=== PATIENT | female | born 1965 | race African-American/Black ===

== ENCOUNTER 2025-02-21 01:48 | Inpatient (IN) | payer OTHER ==
[2025-02-21 03:13] LABS: ABSOLUTE IMMATURE GRANULOCYTES 0.01 x10^3/uL (0.0-0.031); BASOPHILS # 0.03 x10^3/uL (0.01-0.08); EOSINOPHIL % 1.4 % (0.7-5.8); EOSINOPHILS # 0.09 x10^3/uL (0.04-0.36); HEMATOCRIT 34.9 % (34.1-44.9); HEMOGLOBIN 10.8 g/dL (11.2-15.7); MCHC 30.9 g/dl (32.2-35.5); MEAN CELL VOLUME 94.1 fl (79.4-94.8); MEAN PLT VOLUME 11.9 fl (9.4-12.3); MONOCYTE # 0.59 x10^3/uL (0.24-0.86); MONOCYTE % 9.3 % (4.7-12.5); PLATELET COUNT 228 x10^3/uL (182-369); RDW 16.1 % (12.3-16.6)
[2025-02-21 03:14] LABS: VENOUS BASE EXCESS -3.5 mmol/L (-2-2); VENOUS O2 SATURATION 67.4 % (70-80); VENOUS PH 7.282 (7.310-7.410)
[2025-02-21 03:21] LABS: INR 1.08 (0.83-1.09); PROTHROMBIN TIME (PATIENT) 11.9 SEC (9.7-13.0)
[2025-02-21 03:23] LABS: ACTIVATED PTT 33.1 SECONDS (25.2-36.5)
[2025-02-21 03:31] LABS: POTASSIUM 4.2 mmol/L (3.5-5.1)
[2025-02-21 03:34] LABS: ALBUMIN 3.3 g/dl (3.4-5.0); BLOOD UREA NITROGEN 48.7 mg/dL (7-18); CALCIUM 8.9 mg/dL (8.5-10.1); MAGNESIUM 2.8 mg/dL (1.8-2.4)
[2025-02-21 03:37] LABS: CREATININE 4.1 mg/dL (0.55-1.3)
[2025-02-21 03:38] LABS: BILIRUBIN,TOTAL 0.5 mg/dL (0.2-1)
[2025-02-21 03:39] LABS: TOT PROT 8.2 g/dl (6.4-8.2)
[2025-02-21] MEDS ORDERED: SCOPOLAMINE HYDROBROMIDE 1 PATCH PATCH.TD72 ONE (03:39)
[2025-02-21] MEDS: SCOPOLAMINE HYDROBROMIDE 1 PATCH PATCH.TD72 TD SCH (03:43)
[2025-02-21] MEDS ORDERED: levETIRAcetam 500 MG/5 ML INJECTION VIAL IVPB ONE (04:36)
[2025-02-21] MEDS: levETIRAcetam 500 MG/5 ML INJECTION VIAL IVPB ONE (04:43)
[2025-02-21] MEDS ORDERED: LORazepam 2 MG/ML SDV VIAL ONE (06:05)
[2025-02-21] MEDS ORDERED: ATORVASTATIN CA 20 MG TABLET (FP) ONE (09:17)
[2025-02-21] MEDS: ATORVASTATIN CA 40 MG TABLET (FP) PO ONE (09:29)
[2025-02-21] MEDS ORDERED: MIDODRINE HCL 5 MG TABLET GT SCH (10:00)
[2025-02-21] MEDS ORDERED: APIXABAN 5 MG TABLET ONE (10:25)
[2025-02-21] MEDS ORDERED: levETIRAcetam 500 MG/5 ML ORAL SOLUTION (UNIT-DOSE CUPS) ONE (10:26)
[2025-02-21] MEDS ORDERED: Lacosamide 50 MG/5 ML ORAL SOLUTION UNIT CUPS ONE (10:26)
[2025-02-21] MEDS ORDERED: MIDODRINE HCL 5 MG TABLET ONE (10:26)
[2025-02-21] MEDS: MIDODRINE HCL 5 MG TABLET GT SCH (10:41)
[2025-02-21] MEDS: Lacosamide 50 MG/5 ML ORAL SOLUTION UNIT CUPS GT SCH ×2 (10:41→10:42)
[2025-02-21] MEDS: levETIRAcetam 500 MG/5 ML ORAL SOLUTION (UNIT-DOSE CUPS) GT SCH (10:41)
[2025-02-21] MEDS: APIXABAN 5 MG TABLET GT SCH (10:41)
[2025-02-21] MEDS: Lacosamide 50 MG/5 ML ORAL SOLUTION UNIT CUPS PO SCH (10:41)
[2025-02-21] MEDS: INSULIN ASPART SLIDING SCALE (NOVOLOG) 1 VIAL SQ SCH (12:40)
[2025-02-21] MEDS: ASPIRIN 81 MG CHEWABLE TABLETS GT SCH (14:56)
[2025-02-21] MEDS: VALPROATE SODIUM 250 MG/5 ML UNIT DOSE CUP GT SCH ×2 (14:56→22:09)
[2025-02-21] MEDS ORDERED: SODIUM CHLORIDE 250 ML IV PRN (21:10)
[2025-02-21] MEDS: METOCLOPRAMIDE HCL 10 MG/10 ML UNIT DOSE CUP GT SCH (22:43)
[2025-02-22] MEDS: VALPROATE SODIUM 250 MG/5 ML UNIT DOSE CUP GT SCH ×2 (06:12→13:06)
[2025-02-22 06:45] LABS: HEMOGLOBIN 10.6 g/dL (11.2-15.7); MCHC 30.3 g/dl (32.2-35.5); MEAN CELL VOLUME 95.1 fl (79.4-94.8); PLATELET COUNT 209 x10^3/uL (182-369); RDW 15.7 % (12.3-16.6)
[2025-02-22 06:51] LABS: POTASSIUM 4.8 mmol/L (3.5-5.1)
[2025-02-22 07:06] LABS: CALCIUM 8.7 mg/dL (8.5-10.1)
[2025-02-22 07:07] LABS: ALBUMIN 3.2 g/dl (3.4-5.0); BLOOD UREA NITROGEN 56.3 mg/dL (7-18); MAGNESIUM 2.8 mg/dL (1.8-2.4)
[2025-02-22 07:10] LABS: CREATININE 4.9 mg/dL (0.55-1.3); PHOSPHOROUS 4.2 mg/dL (2.5-4.9)
[2025-02-22 07:11] LABS: BILIRUBIN,TOTAL 0.5 mg/dL (0.2-1); TOT PROT 7.9 g/dl (6.4-8.2)
[2025-02-22] MEDS: cloBAZam 10 MG TABLET GT SCH (09:41)
[2025-02-22] MEDS: VALPROATE SODIUM 250 MG/5 ML UNIT DOSE CUP GT ONE (09:41)
[2025-02-22] MEDS ORDERED: LORazepam 2 MG/ML SDV VIAL IVPUSH PRN (13:38)
[2025-02-22 14:59] VITALS: BMI 36.0
[2025-02-22 15:03] LABS: HCV DIAGNOSTIC IN-HOUSE W/RFLX NON-REACTIVE (NONREACTIVE)
[2025-02-23 06:56] LABS: POTASSIUM 4.3 mmol/L (3.5-5.1)
[2025-02-23 06:59] LABS: CALCIUM 8.9 mg/dL (8.5-10.1); HEMATOCRIT 31.5 % (34.1-44.9); HEMOGLOBIN 9.5 g/dL (11.2-15.7); MCHC 30.2 g/dl (32.2-35.5); MEAN CELL VOLUME 95.2 fl (79.4-94.8); PLATELET COUNT 198 x10^3/uL (182-369); RDW 15.7 % (12.3-16.6)
[2025-02-23 07:00] LABS: BLOOD UREA NITROGEN 63.8 mg/dL (7-18); MAGNESIUM 2.6 mg/dL (1.8-2.4)
[2025-02-23 07:03] LABS: CREATININE 5.5 mg/dL (0.55-1.3)
[2025-02-23] MEDS ORDERED: SODIUM CHLORIDE 250 ML IV PRN (14:36)
[2025-02-23] MEDS ORDERED: EPOETIN ALFA-EPBX 4,000 UNIT/ML VIAL SQ ONE (14:36)
[2025-02-23] MEDS: EPOETIN ALFA-EPBX 4,000 UNIT/ML VIAL SQ ONE (19:18)
[2025-02-24] MEDS: ACETAMINOPHEN 650 MG/20.3 ML ORAL SOLUTION (CUPS) GT PRN (04:58)
[2025-02-24 07:07] LABS: HEMATOCRIT 31.8 % (34.1-44.9); HEMOGLOBIN 9.8 g/dL (11.2-15.7); MCHC 30.8 g/dl (32.2-35.5); MEAN CELL VOLUME 95.5 fl (79.4-94.8); MEAN PLT VOLUME 12.4 fl (9.4-12.3); PLATELET COUNT 136 x10^3/uL (182-369); RDW 15.6 % (12.3-16.6)
[2025-02-24 07:24] LABS: POTASSIUM 4.1 mmol/L (3.5-5.1)
[2025-02-24 07:36] LABS: CALCIUM 8.8 mg/dL (8.5-10.1); MAGNESIUM 2.5 mg/dL (1.8-2.4)
[2025-02-24 07:37] LABS: ALBUMIN 3.1 g/dl (3.4-5.0); BLOOD UREA NITROGEN 45.5 mg/dL (7-18)
[2025-02-24 07:40] LABS: CREATININE 4.2 mg/dL (0.55-1.3); PHOSPHOROUS 3.5 mg/dL (2.5-4.9)
[2025-02-24 07:41] LABS: BILIRUBIN,TOTAL 0.3 mg/dL (0.2-1); TOT PROT 7.6 g/dl (6.4-8.2)
[2025-02-24] MEDS: hydrALAZINE HCL 20 MG/ML VIAL IVPUSH PRN (09:40)
[2025-02-24] MEDS ORDERED: SODIUM CHLORIDE 250 ML IV PRN (15:14)
[2025-02-25 06:55] LABS: HEMATOCRIT 33.5 % (34.1-44.9); MCHC 29.9 g/dl (32.2-35.5); MEAN CELL VOLUME 95.2 fl (79.4-94.8); MEAN PLT VOLUME 12.5 fl (9.4-12.3); PLATELET COUNT 165 x10^3/uL (182-369)
[2025-02-25 07:10] LABS: POTASSIUM 4.3 mmol/L (3.5-5.1)
[2025-02-25 07:13] LABS: CALCIUM 9.7 mg/dL (8.5-10.1)
[2025-02-25 07:14] LABS: BLOOD UREA NITROGEN 57.3 mg/dL (7-18)
[2025-02-25 07:18] LABS: BILIRUBIN,TOTAL 0.4 mg/dL (0.2-1); TOT PROT 7.3 g/dl (6.4-8.2)
[2025-02-25 13:01] VITALS: RESP 18; TEMP 98.2
[2025-02-25 16:31] VITALS: BP 140/75; PULSE 82
[2025-02-25] MEDS ORDERED: INSULIN ASPART SLIDING SCALE (NOVOLOG) 1 VIAL SQ ONE (17:49)
== END 2025-02-25 18:30 | DRG 100 ==
LOC: JER 01:48 → JERBED 04:51 → OBSVTOIN 08:58 → J2W 11:20
PROVIDERS: ADMIT Internal Medicine; ATTEND Student in an Organized Health Care Education/Training Program
PROC: 5A1955Z Respiratory Ventilation, Greater than 96 Consecutive Hours (ICD-10-PCS; principal; 2025-02-21)
PROC: 5A1D70Z Performance of Urinary Filtration, Intermittent, Less than 6 Hours Per Day (ICD-10-PCS; 2025-02-25)
DX: G40.901 Epilepsy, unspecified, not intractable, with status epilepticus (principal); N18.6 End stage renal disease; R53.2 Functional quadriplegia; G93.1 Anoxic brain damage, not elsewhere classified; I12.0 Hypertensive chronic kidney disease with stage 5 chronic kidney disease or end stage renal disease; E11.22 Type 2 diabetes mellitus with diabetic chronic kidney disease; Z99.2 Dependence on renal dialysis; Z93.0 Tracheostomy status
CPT/HCPCS: 0241U-QW; 36415; 70450-TC; 70551-TC; 71045-TC-FY; 80048; 80053; 80164; 80177; 82803; 82962; 83605; 83690; 83735; 83880; 84100; 84484; 85025; 85027; 85610; 85730; 86704; 86707; 86803; 87040; 87340; 87481; 93005; 93010; 95816; 99285-25; G0378; Q5106

== ENCOUNTER 2025-02-26 13:54 | Emergency (ER) | payer OTHER ==
[2025-02-26 14:59] VITALS: TEMP 98.5; BMI 40.2
[2025-02-26 20:45] VITALS: BP 133/88; PULSE 73; RESP 20
== END 2025-02-26 23:43 | disposition home or self-care (01) ==
LOC: JER 13:54
DX: K94.23 Gastrostomy malfunction (principal)
CPT/HCPCS: 49450; 49452; 74018-TC-FY; 82962; 99284-25

== ENCOUNTER 2025-05-18 01:53 | Inpatient (IN) | payer OTHER ==
[2025-05-18 03:30] LABS: ABSOLUTE IMMATURE GRANULOCYTES 0.01 x10^3/uL (0.0-0.031); BASOPHILS # 0.01 x10^3/uL (0.01-0.08); EOSINOPHIL % 1.9 % (0.7-5.8); EOSINOPHILS # 0.09 x10^3/uL (0.04-0.36); MCHC 31.2 g/dl (32.2-35.5); MEAN CELL VOLUME 94.0 fl (79.4-94.8); MEAN PLT VOLUME 12.0 fl (9.4-12.3); MONOCYTE # 0.54 x10^3/uL (0.24-0.86); MONOCYTE % 11.1 % (4.7-12.5); RDW 19.0 % (12.3-16.6)
[2025-05-18 03:54] LABS: CO2 30.0 mmol/L (21-32); GLUCOSE,RANDOM 281.0 mg/dL (74-106)
[2025-05-18 03:56] LABS: CREATININE 1.8 mg/dL (0.55-1.3); SGOT/AST 14.0 U/L (15-37); SGPT/ALT 13.0 U/L (13-61)
[2025-05-18 03:57] LABS: TOT PROT 9.1 g/dl (6.4-8.2)
[2025-05-18 03:59] LABS: ALK PHOS 459.0 U/L (45-117)
[2025-05-18] MEDS: KCL 10 MEQ IVPB 10 MEQ/100 ML INFUS.BAG IVPB SCH (04:22)
[2025-05-18] MEDS: PIPERACILLIN/TAZOB 4.5 GM 4.5 GM in DEXTROSE 5%-WATER 100 ML IVPB ONE (04:22)
[2025-05-18] MEDS ORDERED: PIPERACILLIN/TAZOB 4.5 GM 4.5 GM/100 ML BAG IVPB ONE (04:25)
[2025-05-18 05:09] LABS: HIV INTERPRETATION NEGATIVE (NEGATIVE)
[2025-05-18 05:10] LABS: HCV DIAGNOSTIC IN-HOUSE W/RFLX NON-REACTIVE (NONREACTIVE)
[2025-05-18] MEDS ORDERED: VANCOMYCIN 1 GM PREMIX (F) 1 GM/200 ML BAG ONE (05:12)
[2025-05-18] MEDS: VANCOMYCIN 1,000 MG in DEXTROSE 5%-WATER - 250 ML IVPB ONE (05:16)
[2025-05-18] MEDS ORDERED: LORazepam 2 MG/ML SDV VIAL IVPUSH PRN (05:20)
[2025-05-18] MEDS ORDERED: KCL 10 MEQ IVPB 10 MEQ/100 ML INFUS.BAG IVPB ONE (05:26)
[2025-05-18] MEDS ORDERED: SILVER SULFADIAZINE 1% TOP CREAM 400 GM JAR TP PRN (07:25)
[2025-05-18] MEDS ORDERED: ALBUTEROL SO4 0.083% IH SOL 2.5 MG/3 ML VIAL.NEB. NEB PRN (07:25)
[2025-05-18 07:33] LABS: BASOPHILS # 0.01 x10^3/uL (0.01-0.08)
[2025-05-18 07:35] LABS: ABSOLUTE IMMATURE GRANULOCYTES 0.01 x10^3/uL (0.0-0.031); EOSINOPHIL % 1.8 % (0.7-5.8); EOSINOPHILS # 0.09 x10^3/uL (0.04-0.36); IMMATURE PLATELET FRACTION # 10.60 x10^3/uL; MCHC 30.3 g/dl (32.2-35.5); MEAN CELL VOLUME 94.4 fl (79.4-94.8); MEAN PLT VOLUME 11.2 fl (9.4-12.3); MONOCYTE # 0.71 x10^3/uL (0.24-0.86); MONOCYTE % 13.8 % (4.7-12.5); RDW 18.8 % (12.3-16.6)
[2025-05-18 07:47] LABS: CO2 28.0 mmol/L (21-32); CREATININE 1.7 mg/dL (0.55-1.3); GLUCOSE,RANDOM 237.0 mg/dL (74-106)
[2025-05-18 07:48] LABS: ALK PHOS 443.0 U/L (45-117); SGOT/AST 13.0 U/L (15-37); SGPT/ALT 10.0 U/L (13-61); TOT PROT 9.1 g/dl (6.4-8.2)
[2025-05-18] MEDS: APIXABAN 5 MG TABLET GT SCH (10:26)
[2025-05-18] MEDS: CARVEDILOL 12.5 MG TABLET (FP) PEG SCH (10:27)
[2025-05-18] MEDS: SCOPOLAMINE HYDROBROMIDE 1 PATCH PATCH.TD72 TD SCH (10:27)
[2025-05-18] MEDS: POLYETHYLENE GLYCOL (HEALTHYLAX) 3350 17 GM PACKET GT SCH (10:28)
[2025-05-18] MEDS ORDERED: POLYETHYLENE GLYCOL (HEALTHYLAX) 3350 17 GM PACKET ONE (10:31)
[2025-05-18] MEDS ORDERED: SCOPOLAMINE HYDROBROMIDE 1 PATCH PATCH.TD72 ONE (10:31)
[2025-05-18] MEDS ORDERED: CARVEDILOL 6.25 MG TABLET (FP) ONE (10:31)
[2025-05-18] MEDS: VALPROATE SODIUM 250 MG/5 ML UNIT DOSE CUP PEG SCH ×2 (14:13→22:03)
[2025-05-18] MEDS: FAMOTIDINE 20 MG/2.5 ML ORAL LIQUID PO SCH (14:14)
[2025-05-18] MEDS: VITAMIN B COMPLEX W/C COMBO TABLET (FP) PO SCH (14:14)
[2025-05-18] MEDS: METOCLOPRAMIDE HCL 10 MG/10 ML UNIT DOSE CUP GT SCH (15:00)
[2025-05-18] MEDS ORDERED: INSULIN (NOVOLOG) ASPART 100 UNITS/ML 10ML VIAL SQ SCH (16:30)
[2025-05-18] MEDS: SILVER SULFADIAZINE 1% TOP CREAM 400 GM JAR TP SCH (18:17)
[2025-05-18] MEDS ORDERED: CLOBAZAM 2.5 MG/ML PEG SCH (22:00)
[2025-05-18] MEDS: SENNOSIDES 8.8 MG/5 ML SYRUP GT SCH (22:03)
[2025-05-18] MEDS: INSULIN ASPART SLIDING SCALE (NOVOLOG) 1 VIAL SQ SCH (22:03)
[2025-05-18] MEDS: INSULIN GLARGINE (LANTUS) 100 UNITS/ML UNITS SQ SCH (22:03)
[2025-05-19 06:21] LABS: ABSOLUTE IMMATURE GRANULOCYTES 0.01 x10^3/uL (0.0-0.031); EOSINOPHIL % 3.0 % (0.7-5.8); EOSINOPHILS # 0.12 x10^3/uL (0.04-0.36)
[2025-05-19 06:24] LABS: BASOPHILS # 0.02 x10^3/uL (0.01-0.08); IMMATURE PLATELET FRACTION # 10.10 x10^3/uL; MCHC 30.8 g/dl (32.2-35.5); MEAN CELL VOLUME 92.9 fl (79.4-94.8); MEAN PLT VOLUME 11.8 fl (9.4-12.3); MONOCYTE # 0.69 x10^3/uL (0.24-0.86); MONOCYTE % 17.2 % (4.7-12.5); RDW 17.9 % (12.3-16.6)
[2025-05-19 06:44] LABS: CO2 28.0 mmol/L (21-32); GLUCOSE,RANDOM 141.0 mg/dL (74-106)
[2025-05-19 06:47] LABS: CREATININE 2.2 mg/dL (0.55-1.3)
[2025-05-19 11:11] VITALS: BMI 42.5
[2025-05-19] MEDS ORDERED: INSULIN ASPART SLIDING SCALE (NOVOLOG) 1 VIAL SQ ONE ×2 (11:59→16:48)
[2025-05-20] MEDS: ACETAMINOPHEN 650 MG/20.3 ML ORAL SOLUTION (CUPS) GT PRN (09:55)
[2025-05-20 16:34] VITALS: PULSE 62
[2025-05-20 17:08] VITALS: BP 160/83; RESP 11; TEMP 98
[2025-05-23] MEDS ORDERED: Darbepoetin Alfa in Polysorbat 40 MCG/0.4 DISP.SYRIN SQ SCH (10:00)
== END 2025-05-20 20:18 | DRG 100 ==
LOC: JER 01:53 → JERBED 04:35 → J2W 11:21
PROVIDERS: ADMIT Internal Medicine; ATTEND Internal Medicine
PROC: 5A1945Z Respiratory Ventilation, 24-96 Consecutive Hours (ICD-10-PCS; principal; 2025-05-18)
PROC: 30233N1 Transfusion of Nonautologous Red Blood Cells into Peripheral Vein, Percutaneous Approach (ICD-10-PCS; 2025-05-18)
DX: G40.909 Epilepsy, unspecified, not intractable, without status epilepticus (principal); N18.6 End stage renal disease; G93.1 Anoxic brain damage, not elsewhere classified; Z99.11 Dependence on respirator [ventilator] status; E87.1 Hypo-osmolality and hyponatremia; Z68.41 Body mass index [BMI] 40.0-44.9, adult; E87.6 Hypokalemia; J44.9 Chronic obstructive pulmonary disease, unspecified; Z93.0 Tracheostomy status; Z93.1 Gastrostomy status; D64.9 Anemia, unspecified; D69.6 Thrombocytopenia, unspecified; L89.152 Pressure ulcer of sacral region, stage 2; K21.9 Gastro-esophageal reflux disease without esophagitis; E66.01 Morbid (severe) obesity due to excess calories
CPT/HCPCS: 36415; 36430; 70450-TC; 71045-TC-FY; 80048; 80053; 80164; 82140; 82962; 83735; 84100; 85025; 86803; 86850; 86900; 86901; 86922; 87389; 87481; 93005; 93010; 99285-25; P9058

== ENCOUNTER 2025-05-24 13:11 | Inpatient (IN) | payer OTHER ==
[2025-05-24 13:48] VITALS: BMI 58.6
[2025-05-24 15:51] LABS: ABSOLUTE IMMATURE GRANULOCYTES 0.01 x10^3/uL (0.0-0.031); BASOPHILS # 0.01 x10^3/uL (0.01-0.08)
[2025-05-24 15:52] LABS: EOSINOPHIL % 3.7 % (0.7-5.8); EOSINOPHILS # 0.16 x10^3/uL (0.04-0.36); IMMATURE PLATELET FRACTION # 8.10 x10^3/uL; MCHC 31.7 g/dl (32.2-35.5); MEAN CELL VOLUME 93.2 fl (79.4-94.8); MEAN PLT VOLUME 11.0 fl (9.4-12.3); MONOCYTE # 0.60 x10^3/uL (0.24-0.86); MONOCYTE % 13.7 % (4.7-12.5); RDW 18.0 % (12.3-16.6)
[2025-05-24 16:09] LABS: INR 1.12 (0.83-1.09); PROTHROMBIN TIME (PATIENT) 12.3 SEC (9.7-13.0)
[2025-05-24 16:12] LABS: ACTIVATED PTT 44.8 SECONDS (25.2-36.5)
[2025-05-24 16:50] LABS: CO2 28.0 mmol/L (21-32); GLUCOSE,RANDOM 128.0 mg/dL (74-106)
[2025-05-24 16:53] LABS: CREATININE 2.9 mg/dL (0.55-1.3); SGOT/AST 17.0 U/L (15-37); SGPT/ALT 12.0 U/L (13-61)
[2025-05-24 16:54] LABS: TOT PROT 9.0 g/dl (6.4-8.2)
[2025-05-24 17:03] LABS: ALK PHOS 411.0 U/L (45-117)
[2025-05-24] MEDS ORDERED: ACETAMINOPHEN 650 MG/20.3 ML ORAL SOLUTION (CUPS) GT PRN (21:59)
[2025-05-24] MEDS ORDERED: ALBUTEROL SO4 0.083% IH SOL 2.5 MG/3 ML VIAL.NEB. NEB PRN (21:59)
[2025-05-24] MEDS: CARVEDILOL 12.5 MG TABLET (FP) PEG SCH (23:27)
[2025-05-24] MEDS: VALPROATE SODIUM 250 MG/5 ML UNIT DOSE CUP PEG SCH (23:27)
[2025-05-25] MEDS: VALPROATE SODIUM 250 MG/5 ML UNIT DOSE CUP PEG SCH ×2 (00:01→06:11)
[2025-05-25] MEDS: SODIUM CHLORIDE 500 ML IV STA (05:03)
[2025-05-25] MEDS ORDERED: DEXTROSE 50%-WATER - 25 GM/50 ML VIAL IVPUSH PRN (09:45)
[2025-05-25] MEDS: VITAMIN B COMP W-C 1 EA TABLET (NEPHRO-VITE) GT SCH (10:18)
[2025-05-25] MEDS: PANTOPRAZOLE SODIUM 40 MG VIAL IVPUSH SCH (10:18)
[2025-05-25 13:12] LABS: BASOPHILS # 0.01 x10^3/uL (0.01-0.08); MEAN CELL VOLUME 92.9 fl (79.4-94.8)
[2025-05-25 13:14] LABS: ABSOLUTE IMMATURE GRANULOCYTES 0.01 x10^3/uL (0.0-0.031); EOSINOPHIL % 3.5 % (0.7-5.8); EOSINOPHILS # 0.12 x10^3/uL (0.04-0.36); IMMATURE PLATELET FRACTION # 8.00 x10^3/uL; MCHC 30.5 g/dl (32.2-35.5); MEAN PLT VOLUME 11.9 fl (9.4-12.3); MONOCYTE # 0.46 x10^3/uL (0.24-0.86); MONOCYTE % 13.4 % (4.7-12.5); RDW 18.2 % (12.3-16.6)
[2025-05-25 13:47] LABS: CO2 29.0 mmol/L (21-32); GLUCOSE,RANDOM 87.0 mg/dL (74-106)
[2025-05-25 13:50] LABS: CREATININE 3.4 mg/dL (0.55-1.3)
[2025-05-25] MEDS ORDERED: DEXTROSE 50%-WATER 25 GM/50 ML DISP.SYRIN IVPUSH PRN (23:40)
[2025-05-26 13:12] LABS: ABSOLUTE IMMATURE GRANULOCYTES 0.00 x10^3/uL (0.0-0.031); BASOPHILS # 0.02 x10^3/uL (0.01-0.08); EOSINOPHIL % 2.8 % (0.7-5.8); EOSINOPHILS # 0.12 x10^3/uL (0.04-0.36); MCHC 31.9 g/dl (32.2-35.5); MEAN CELL VOLUME 91.2 fl (79.4-94.8); MEAN PLT VOLUME 12.4 fl (9.4-12.3); MONOCYTE # 0.45 x10^3/uL (0.24-0.86); MONOCYTE % 10.5 % (4.7-12.5); RDW 17.8 % (12.3-16.6)
[2025-05-26 13:46] LABS: CO2 25.0 mmol/L (21-32); GLUCOSE,RANDOM 152.0 mg/dL (74-106)
[2025-05-26 13:49] LABS: CREATININE 3.9 mg/dL (0.55-1.3)
[2025-05-26 13:50] LABS: SGOT/AST 19.0 U/L (15-37); SGPT/ALT 12.0 U/L (13-61)
[2025-05-26 13:51] LABS: TOT PROT 8.8 g/dl (6.4-8.2)
[2025-05-26 14:00] LABS: ALK PHOS 404.0 U/L (45-117)
[2025-05-26] MEDS ORDERED: SODIUM CHLORIDE 250 ML IV PRN (16:51)
[2025-05-27 15:19] LABS: MCHC 32.3 g/dl (32.2-35.5); MEAN CELL VOLUME 91.5 fl (79.4-94.8); MEAN PLT VOLUME 11.5 fl (9.4-12.3); RDW 17.6 % (12.3-16.6)
[2025-05-27 16:16] LABS: CO2 25.0 mmol/L (21-32); GLUCOSE,RANDOM 217.0 mg/dL (74-106)
[2025-05-27 16:19] LABS: CREATININE 4.4 mg/dL (0.55-1.3); SGOT/AST 11.0 U/L (15-37); SGPT/ALT 12.0 U/L (13-61)
[2025-05-27 16:21] LABS: TOT PROT 8.9 g/dl (6.4-8.2)
[2025-05-27 16:22] LABS: ALK PHOS 429.0 U/L (45-117)
[2025-05-27] MEDS: methylPREDNISolone NA SUCC 40 MG/1 ML VIAL IVPUSH ONE ×2 (16:22)
[2025-05-27] MEDS: PANTOPRAZOLE SODIUM 40 MG VIAL IVPUSH ONE (17:18)
[2025-05-27] MEDS ORDERED: MIDAZOLAM HCL 2 MG/2 ML SINGLE DOSE VIAL ONE (19:10)
[2025-05-27] MEDS ORDERED: methylPREDNISolone NA SUCC 40 MG/1 ML VIAL IVPUSH ONE (19:40)
[2025-05-27] MEDS: PANTOPRAZOLE SODIUM 160 MG in SODIUM CHLORIDE 290 ML IVPB SCH (20:57)
[2025-05-27] MEDS: SCOPOLAMINE HYDROBROMIDE 1 PATCH PATCH.TD72 TD SCH (22:32)
[2025-05-28 02:05] LABS: ABSOLUTE IMMATURE GRANULOCYTES 0.01 x10^3/uL (0.0-0.031); BASOPHILS # 0.00 x10^3/uL (0.01-0.08); MEAN CELL VOLUME 91.4 fl (79.4-94.8)
[2025-05-28 02:07] LABS: EOSINOPHIL % 1.9 % (0.7-5.8); EOSINOPHILS # 0.04 x10^3/uL (0.04-0.36); IMMATURE PLATELET FRACTION # 5.60 x10^3/uL; MCHC 32.6 g/dl (32.2-35.5); MEAN PLT VOLUME 12.2 fl (9.4-12.3); MONOCYTE # 0.14 x10^3/uL (0.24-0.86); MONOCYTE % 6.6 % (4.7-12.5); RDW 16.4 % (12.3-16.6)
[2025-05-28 07:48] LABS: ABSOLUTE IMMATURE GRANULOCYTES 0.01 x10^3/uL (0.0-0.031); BASOPHILS # 0.00 x10^3/uL (0.01-0.08)
[2025-05-28 07:49] LABS: EOSINOPHIL % 0.3 % (0.7-5.8); EOSINOPHILS # 0.01 x10^3/uL (0.04-0.36); IMMATURE PLATELET FRACTION # 5.00 x10^3/uL; MCHC 32.1 g/dl (32.2-35.5); MEAN CELL VOLUME 91.7 fl (79.4-94.8); MEAN PLT VOLUME 12.3 fl (9.4-12.3); MONOCYTE # 0.18 x10^3/uL (0.24-0.86); MONOCYTE % 5.6 % (4.7-12.5); RDW 16.9 % (12.3-16.6)
[2025-05-28 08:40] LABS: INR 1.22 (0.83-1.09); PROTHROMBIN TIME (PATIENT) 13.4 SEC (9.7-13.0)
[2025-05-28 09:51] LABS: CO2 31.0 mmol/L (21-32); GLUCOSE,RANDOM 172.0 mg/dL (74-106)
[2025-05-28 09:53] LABS: SGPT/ALT 13.0 U/L (13-61)
[2025-05-28 09:54] LABS: CREATININE 2.6 mg/dL (0.55-1.3); SGOT/AST 16.0 U/L (15-37)
[2025-05-28 09:55] LABS: TOT PROT 8.3 g/dl (6.4-8.2)
[2025-05-28 10:23] LABS: ALK PHOS 365.0 U/L (45-117)
[2025-05-29 08:38] LABS: MEAN CELL VOLUME 92.1 fl (79.4-94.8)
[2025-05-29 08:40] LABS: IMMATURE PLATELET FRACTION # 4.10 x10^3/uL; MCHC 32.3 g/dl (32.2-35.5); MEAN PLT VOLUME 11.2 fl (9.4-12.3); RDW 17.6 % (12.3-16.6)
[2025-05-29] MEDS ORDERED: DEXTROSE 50%-WATER 25 GM/50 ML DISP.SYRIN IVPUSH PRN (08:41)
[2025-05-29] MEDS ORDERED: ACETAMINOPHEN 650 MG/20.3 ML ORAL SOLUTION (CUPS) GT PRN (08:41)
[2025-05-29 09:09] LABS: CO2 31.0 mmol/L (21-32); GLUCOSE,RANDOM 221.0 mg/dL (74-106)
[2025-05-29 09:12] LABS: CREATININE 3.0 mg/dL (0.55-1.3)
[2025-05-29] MEDS ORDERED: SODIUM CHLORIDE 250 ML IV PRN (09:36)
[2025-05-29] MEDS ORDERED: CARVEDILOL 12.5 MG TABLET (FP) PEG SCH (10:00)
[2025-05-29] MEDS: PANTOPRAZOLE SODIUM 40 MG VIAL IVPUSH SCH (10:52)
[2025-05-29] MEDS: MIDODRINE HCL 5 MG TABLET PEG SCH (10:52)
[2025-05-29 12:31] LABS: ABSOLUTE IMMATURE GRANULOCYTES 0.01 x10^3/uL (0.0-0.031); BASOPHILS # 0.00 x10^3/uL (0.01-0.08); EOSINOPHIL % 3.7 % (0.7-5.8); EOSINOPHILS # 0.12 x10^3/uL (0.04-0.36); MCHC 31.1 g/dl (32.2-35.5); MEAN CELL VOLUME 95.7 fl (79.4-94.8); MEAN PLT VOLUME 12.6 fl (9.4-12.3); MONOCYTE # 0.39 x10^3/uL (0.24-0.86); MONOCYTE % 11.9 % (4.7-12.5); RDW 18.0 % (12.3-16.6)
[2025-05-29] MEDS ORDERED: MULTIVIT-MINERALS ORAL LIQUID PEG SCH (12:45)
[2025-05-29] MEDS ORDERED: MULTIVIT-MINERALS ORAL LIQUID PO SCH (12:45)
[2025-05-29] MEDS: ASCORBIC ACID 500 MG TABLET (FP) PEG SCH (13:44)
[2025-05-29] MEDS: VALPROATE SODIUM 250 MG/5 ML UNIT DOSE CUP PEG SCH ×2 (13:45→23:50)
[2025-05-29] MEDS: ALBUTEROL SO4 0.083% IH SOL 2.5 MG/3 ML VIAL.NEB. NEB PRN (14:00)
[2025-05-29] MEDS: VANCOMYCIN/WATER FOR INJ (PEG) 1,000 MG/200 ML BAG IVPB ONE (17:08)
[2025-05-29] MEDS: AMINO ACIDS/PROTEIN HYDROLYS 30 ML LIQUID.PKT GT SCH (17:08)
[2025-05-29] MEDS: ALBUMIN HUMAN 25% 12.5 GM/50 ML VIAL IV ONE (18:05)
[2025-05-29] MEDS: MUPIROCIN 2% TOPICAL OINTMENT FOR DECOLONIZATION NS SCH (23:50)
[2025-05-29] MEDS: CHLORHEXIDINE GLUCONATE 4% CLEANSER FOR DECOLONIZATION TP SCH (23:51)
[2025-05-29] MEDS: NOREPINEPHRINE BITARTRATE 4,000 MCG in DEXTROSE 5%-WATER - 496 ML IV SCH (23:52)
[2025-05-30] MEDS ORDERED: DEXTROSE 50%-WATER 25 GM/50 ML DISP.SYRIN IVPUSH PRN (01:59)
[2025-05-30] MEDS ORDERED: EPOETIN ALFA-EPBX 10,000 UNIT/ML VIAL IVPUSH ONE (01:59)
[2025-05-30] MEDS ORDERED: SODIUM CHLORIDE 250 ML IV PRN (01:59)
[2025-05-30] MEDS ORDERED: ALBUTEROL SO4 0.083% IH SOL 2.5 MG/3 ML VIAL.NEB. NEB PRN (01:59)
[2025-05-30 06:53] LABS: IMMATURE PLATELET FRACTION # 5.40 x10^3/uL; MCHC 32.5 g/dl (32.2-35.5); MEAN CELL VOLUME 89.2 fl (79.4-94.8); MEAN PLT VOLUME 12.7 fl (9.4-12.3); RDW 17.2 % (12.3-16.6)
[2025-05-30] MEDS: MIDODRINE HCL 5 MG TABLET PEG SCH (11:12)
[2025-05-30] MEDS: AMINO ACIDS/PROTEIN HYDROLYS 30 ML LIQUID.PKT GT SCH (11:12)
[2025-05-30] MEDS: ASCORBIC ACID 500 MG TABLET (FP) PEG SCH (11:14)
[2025-05-30] MEDS: VALPROATE SODIUM 250 MG/5 ML UNIT DOSE CUP PEG SCH ×2 (11:14→21:55)
[2025-05-30] MEDS: MEROPENEM 1 GM in DEXTROSE 5%-WATER 100 ML IVPB ONE (11:27)
[2025-05-30 12:47] LABS: CO2 26.0 mmol/L (21-32); GLUCOSE,RANDOM 186.0 mg/dL (74-106)
[2025-05-30 12:50] LABS: CREATININE 2.8 mg/dL (0.55-1.3); SGOT/AST 14.0 U/L (15-37); SGPT/ALT 12.0 U/L (13-61)
[2025-05-30] MEDS: METOCLOPRAMIDE HCL INJECTION 10 MG/2 ML VIAL IVPUSH ONE (12:50)
[2025-05-30 12:52] LABS: TOT PROT 7.2 g/dl (6.4-8.2)
[2025-05-30 12:57] LABS: ALK PHOS 261.0 U/L (45-117)
[2025-05-30] MEDS ORDERED: MIDAZOLAM HCL 2 MG/2 ML SINGLE DOSE VIAL ONE ×2 (14:11→14:47)
[2025-05-30] MEDS ORDERED: KCL 10 MEQ IVPB 10 MEQ/100 ML INFUS.BAG IVPB SCH (14:15)
[2025-05-30] MEDS: MIDAZOLAM HCL 2 MG/2 ML SINGLE DOSE VIAL IVPUSH ONE (16:09)
[2025-05-30] MEDS ORDERED: NOREPINEPHRINE BITARTRATE 4 MG/4 ML ML IV ONE (17:36)
[2025-05-30] MEDS: NOREPINEPHRINE BITARTRATE 4,000 MCG in DEXTROSE 5%-WATER - 496 ML IV SCH (17:50)
[2025-05-30] MEDS: PIPERACILLIN/TAZOB 2.25 GM 2.25 GM in DEXTROSE 5%-WATER - 50 ML IVPB SCH (20:42)
[2025-05-30] MEDS: PANTOPRAZOLE SODIUM 40 MG VIAL IVPUSH SCH (21:41)
[2025-05-30] MEDS: NYSTATIN 100,000 UNIT/GM TOPICAL CREAM 15 GM TUBE TP SCH (21:43)
[2025-05-30] MEDS ORDERED: SCOPOLAMINE HYDROBROMIDE 1 PATCH PATCH.TD72 TD SCH ×2 (22:00)
[2025-05-31 09:27] LABS: MCHC 32.2 g/dl (32.2-35.5); MEAN CELL VOLUME 91.9 fl (79.4-94.8); MEAN PLT VOLUME 13.0 fl (9.4-12.3); RDW 18.5 % (12.3-16.6)
[2025-05-31 09:41] LABS: CO2 24.0 mmol/L (21-32); GLUCOSE,RANDOM 215.0 mg/dL (74-106)
[2025-05-31 09:44] LABS: CREATININE 3.0 mg/dL (0.55-1.3); SGOT/AST 30.0 U/L (15-37); SGPT/ALT 12.0 U/L (13-61)
[2025-05-31 09:45] LABS: TOT PROT 7.2 g/dl (6.4-8.2)
[2025-05-31 09:47] LABS: ALK PHOS 250.0 U/L (45-117)
[2025-05-31] MEDS ORDERED: MEROPENEM 500 MG in DEXTROSE 5%-WATER 100 ML IVPB SCH (10:00)
[2025-05-31] MEDS ORDERED: MEROPENEM-0.9% SODIUM CHLORIDE 500 MG/50 ML BAG IVPB SCH (10:00)
[2025-05-31] MEDS: NOREPINEPHRINE 0.9 % NACL 8 MG/250 ML BAG IVPB SCH (11:38)
[2025-05-31] MEDS: VITAMIN B COMP W-C 1 EA TABLET (NEPHRO-VITE) GT SCH (11:38)
[2025-05-31] MEDS: PANTOPRAZOLE SODIUM 40 MG VIAL IVPUSH SCH (11:39)
[2025-05-31] MEDS: EPOETIN ALFA-EPBX 10,000 UNIT/ML VIAL IVPUSH ONE (11:39)
[2025-05-31] MEDS: PIPERACILLIN/TAZOB 3.375 GM 3.375 GM in DEXTROSE 5%-WATER - 50 ML IVPB SCH (11:40)
[2025-05-31] MEDS: methylPREDNISolone NA SUCC 40 MG/1 ML VIAL IVPUSH ONE (13:21)
[2025-05-31] MEDS: AMINO ACIDS 4.25%/D5W 1,000 ML IV SCH ×2 (14:27→14:44)
[2025-05-31] MEDS: AMINO ACID 4.25%/D5W/ELECTROLYTES IV SCH (14:44)
[2025-05-31] MEDS ORDERED: SODIUM CHLORIDE 250 ML IV PRN (15:46)
[2025-05-31] MEDS: EPOETIN ALFA-EPBX 10,000 UNIT/ML VIAL SQ ONE (20:24)
[2025-05-31 21:19] LABS: ABSOLUTE IMMATURE GRANULOCYTES 0.03 x10^3/uL (0.0-0.031); BASOPHILS # 0.00 x10^3/uL (0.01-0.08); EOSINOPHIL % 1.5 % (0.7-5.8); EOSINOPHILS # 0.09 x10^3/uL (0.04-0.36); MCHC 32.8 g/dl (32.2-35.5); MEAN CELL VOLUME 88.0 fl (79.4-94.8); MEAN PLT VOLUME 12.5 fl (9.4-12.3); MONOCYTE # 0.12 x10^3/uL (0.24-0.86); MONOCYTE % 2.0 % (4.7-12.5); RDW 17.6 % (12.3-16.6)
[2025-05-31 21:29] LABS: CO2 31.0 mmol/L (21-32); GLUCOSE,RANDOM 152.0 mg/dL (74-106)
[2025-05-31 21:30] LABS: SGPT/ALT 14.0 U/L (13-61)
[2025-05-31 21:31] LABS: CREATININE 1.3 mg/dL (0.55-1.3); SGOT/AST 17.0 U/L (15-37)
[2025-05-31 21:33] LABS: TOT PROT 8.6 g/dl (6.4-8.2)
[2025-05-31 21:34] LABS: ALK PHOS 279.0 U/L (45-117)
[2025-06-01 07:46] LABS: CO2 28.0 mmol/L (21-32); GLUCOSE,RANDOM 264.0 mg/dL (74-106)
[2025-06-01 07:47] LABS: SGOT/AST 14.0 U/L (15-37); SGPT/ALT 12.0 U/L (13-61)
[2025-06-01 07:49] LABS: CREATININE 1.8 mg/dL (0.55-1.3)
[2025-06-01 07:50] LABS: TOT PROT 7.4 g/dl (6.4-8.2)
[2025-06-01 07:54] LABS: ALK PHOS 240.0 U/L (45-117)
[2025-06-01 08:12] LABS: MCHC 32.5 g/dl (32.2-35.5); MEAN CELL VOLUME 88.6 fl (79.4-94.8); MEAN PLT VOLUME 12.9 fl (9.4-12.3); RDW 17.8 % (12.3-16.6)
[2025-06-01] MEDS: KCL 10 MEQ IVPB 10 MEQ/100 ML INFUS.BAG IVPB SCH (09:41)
[2025-06-01] MEDS: ACETAMINOPHEN 650 MG/20.3 ML ORAL SOLUTION (CUPS) GT PRN (09:42)
[2025-06-01] MEDS: POTASSIUM PHOSPHATE 30 MM in SODIUM CHLORIDE 250 ML IVPB ONE (09:47)
[2025-06-01] MEDS: MIDODRINE HCL 5 MG TABLET PEG SCH (21:13)
[2025-06-02 08:13] LABS: IMMATURE PLATELET FRACTION # 3.60 x10^3/uL; MCHC 32.4 g/dl (32.2-35.5); MEAN CELL VOLUME 89.9 fl (79.4-94.8); RDW 18.7 % (12.3-16.6)
[2025-06-02 08:21] LABS: INR 1.38 (0.83-1.09); PROTHROMBIN TIME (PATIENT) 15.0 SEC (9.7-13.0)
[2025-06-02 08:42] LABS: CO2 28.0 mmol/L (21-32); GLUCOSE,RANDOM 374.0 mg/dL (74-106)
[2025-06-02 08:45] LABS: CREATININE 2.2 mg/dL (0.55-1.3); SGOT/AST 13.0 U/L (15-37); SGPT/ALT 15.0 U/L (13-61)
[2025-06-02 08:47] LABS: TOT PROT 7.6 g/dl (6.4-8.2)
[2025-06-02 08:48] LABS: ALK PHOS 232.0 U/L (45-117)
[2025-06-02 08:58] LABS: EOSINOPHILS # 0.52 x10^3/uL (0.04-0.36)
[2025-06-02] MEDS: MUPIROCIN 2% TOPICAL OINTMENT FOR DECOLONIZATION NS SCH (10:15)
[2025-06-02] MEDS: CHLORHEXIDINE GLUCONATE 4% CLEANSER FOR DECOLONIZATION TP SCH (22:02)
[2025-06-03 07:27] LABS: IMMATURE PLATELET FRACTION # 3.50 x10^3/uL; MCHC 32.4 g/dl (32.2-35.5); MEAN CELL VOLUME 90.3 fl (79.4-94.8); MEAN PLT VOLUME 11.9 fl (9.4-12.3); RDW 18.6 % (12.3-16.6)
[2025-06-03 07:49] LABS: CO2 27 mmol/L (21-32)
[2025-06-03 07:51] LABS: SGOT/AST 15 U/L (15-37); SGPT/ALT 20 U/L (13-61); TOT PROT 7.4 g/dl (6.4-8.2)
[2025-06-03 07:52] LABS: CREATININE 2.6 mg/dL (0.55-1.3)
[2025-06-03 07:53] LABS: ALK PHOS 224 U/L (45-117)
[2025-06-03 07:58] LABS: GLUCOSE,RANDOM 484 mg/dL (74-106)
[2025-06-03] MEDS ORDERED: SODIUM CHLORIDE 250 ML IV PRN (08:33)
[2025-06-03] MEDS: EPOETIN ALFA-EPBX 10,000 UNIT/ML VIAL IVPUSH ONE (10:40)
[2025-06-03] MEDS ORDERED: ALBUTEROL SO4 0.083% IH SOL 2.5 MG/3 ML VIAL.NEB. NEB PRN (18:35)
[2025-06-03] MEDS: VALPROATE SODIUM 250 MG/5 ML UNIT DOSE CUP PEG SCH (21:48)
[2025-06-03] MEDS: MIDODRINE HCL 5 MG TABLET PEG SCH (21:48)
[2025-06-03] MEDS: PANTOPRAZOLE SODIUM 40 MG VIAL IVPUSH SCH (21:48)
[2025-06-03] MEDS: NYSTATIN 100,000 UNIT/GM TOPICAL CREAM 15 GM TUBE TP SCH (21:51)
[2025-06-04] MEDS: PIPERACILLIN/TAZOB 2.25 GM 2.25 GM in DEXTROSE 5%-WATER - 50 ML IVPB SCH (01:42)
[2025-06-04] MEDS: VALPROATE SODIUM 250 MG/5 ML UNIT DOSE CUP PEG SCH (06:19)
[2025-06-04 07:05] LABS: RDW 18.5 % (12.3-16.6)
[2025-06-04 07:06] LABS: IMMATURE PLATELET FRACTION # 5.30 x10^3/uL; MCHC 33.3 g/dl (32.2-35.5); MEAN CELL VOLUME 89.3 fl (79.4-94.8); MEAN PLT VOLUME 12.5 fl (9.4-12.3)
[2025-06-04 08:06] LABS: CO2 28 mmol/L (21-32)
[2025-06-04 08:08] LABS: SGPT/ALT 23 U/L (13-61)
[2025-06-04 08:09] LABS: CREATININE 1.9 mg/dL (0.55-1.3); SGOT/AST 20 U/L (15-37)
[2025-06-04 08:10] LABS: TOT PROT 7.6 g/dl (6.4-8.2)
[2025-06-04 08:26] LABS: ALK PHOS 318 U/L (45-117); GLUCOSE,RANDOM 512 mg/dL (74-106)
[2025-06-04] MEDS: ASCORBIC ACID 500 MG TABLET (FP) PEG SCH (09:42)
[2025-06-04] MEDS ORDERED: VITAMIN B COMP W-C 1 EA TABLET (NEPHRO-VITE) GT SCH (10:00)
[2025-06-05 07:53] LABS: ABSOLUTE IMMATURE GRANULOCYTES 0.07 x10^3/uL (0.0-0.031); BASOPHILS # 0.02 x10^3/uL (0.01-0.08); EOSINOPHIL % 14.9 % (0.7-5.8); EOSINOPHILS # 0.60 x10^3/uL (0.04-0.36); MCHC 31.2 g/dl (32.2-35.5); MEAN CELL VOLUME 92.7 fl (79.4-94.8); MEAN PLT VOLUME 12.7 fl (9.4-12.3); MONOCYTE # 0.29 x10^3/uL (0.24-0.86); MONOCYTE % 7.2 % (4.7-12.5); RDW 18.5 % (12.3-16.6)
[2025-06-05 08:26] LABS: CO2 30 mmol/L (21-32)
[2025-06-05 08:29] LABS: CREATININE 2.2 mg/dL (0.55-1.3); SGOT/AST 12 U/L (15-37); SGPT/ALT 21 U/L (13-61)
[2025-06-05 08:31] LABS: TOT PROT 7.8 g/dl (6.4-8.2)
[2025-06-05 08:32] LABS: ALK PHOS 302 U/L (45-117)
[2025-06-05 09:17] LABS: GLUCOSE,RANDOM 600 mg/dL (74-106)
[2025-06-05] MEDS: MIDODRINE HCL 5 MG TABLET PEG SCH (13:22)
[2025-06-05] MEDS: VITAMIN B COMP W-C 1 EA TABLET (NEPHRO-VITE) GT SCH (14:32)
[2025-06-05] MEDS: AMINO ACIDS 4.25%/D5W 1,000 ML IV SCH (14:33)
[2025-06-05] MEDS: INSULIN REGULAR HUMAN 100 UNITS/ML *VIAL SQ ONE (15:43)
[2025-06-05] MEDS ORDERED: INSULIN ASPART SLIDING SCALE (NOVOLOG) 1 VIAL SQ SCH (16:30)
[2025-06-05] MEDS: INSULIN ASPART SLIDING SCALE (NOVOLOG) 1 VIAL SQ SCH (17:12)
[2025-06-05] MEDS: INSULIN GLARGINE (LANTUS) 100 UNITS/ML UNITS SQ SCH (22:50)
[2025-06-06] MEDS ORDERED: PIPERACILLIN/TAZOBACTAM 2.25 GM VIAL IVPB ONE (01:14)
[2025-06-06 07:24] LABS: MCHC 31.3 g/dl (32.2-35.5)
[2025-06-06 07:26] LABS: IMMATURE PLATELET FRACTION # 5.80 x10^3/uL; MEAN CELL VOLUME 90.8 fl (79.4-94.8); MEAN PLT VOLUME 11.7 fl (9.4-12.3); RDW 18.1 % (12.3-16.6)
[2025-06-06 07:59] LABS: CO2 31.0 mmol/L (21-32); GLUCOSE,RANDOM 227.0 mg/dL (74-106)
[2025-06-06 08:02] LABS: CREATININE 2.5 mg/dL (0.55-1.3); SGOT/AST 8.0 U/L (15-37); SGPT/ALT 19.0 U/L (13-61)
[2025-06-06 08:03] LABS: TOT PROT 7.6 g/dl (6.4-8.2)
[2025-06-06 08:05] LABS: ALK PHOS 294.0 U/L (45-117)
[2025-06-06] MEDS ORDERED: SODIUM CHLORIDE 250 ML IV PRN (09:25)
[2025-06-06] MEDS: EPOETIN ALFA-EPBX 4,000 UNIT/ML VIAL SQ ONE (12:54)
[2025-06-07 07:20] LABS: MCHC 32.2 g/dl (32.2-35.5); MEAN CELL VOLUME 92.2 fl (79.4-94.8); MEAN PLT VOLUME 12.9 fl (9.4-12.3); RDW 18.4 % (12.3-16.6)
[2025-06-07 07:50] LABS: CO2 33.0 mmol/L (21-32); GLUCOSE,RANDOM 273.0 mg/dL (74-106)
[2025-06-07 07:56] LABS: CREATININE 1.8 mg/dL (0.55-1.3)
[2025-06-08 08:46] LABS: ABSOLUTE IMMATURE GRANULOCYTES 0.03 x10^3/uL (0.0-0.031); BASOPHILS # 0.01 x10^3/uL (0.01-0.08); EOSINOPHIL % 12.9 % (0.7-5.8); EOSINOPHILS # 0.49 x10^3/uL (0.04-0.36); MCHC 32.2 g/dl (32.2-35.5); MEAN CELL VOLUME 89.7 fl (79.4-94.8); MEAN PLT VOLUME 12.6 fl (9.4-12.3); MONOCYTE # 0.46 x10^3/uL (0.24-0.86); MONOCYTE % 12.1 % (4.7-12.5); RDW 18.8 % (12.3-16.6)
[2025-06-08] MEDS ORDERED: SODIUM CHLORIDE 250 ML IV PRN (08:52)
[2025-06-08 09:17] LABS: CO2 34.0 mmol/L (21-32); GLUCOSE,RANDOM 190.0 mg/dL (74-106)
[2025-06-08 09:19] LABS: CREATININE 2.2 mg/dL (0.55-1.3)
[2025-06-08] MEDS: EPOETIN ALFA-EPBX 10,000 UNIT/ML VIAL IVPUSH ONE (10:57)
[2025-06-08 13:14] LABS: MCHC 32.5 g/dl (32.2-35.5); MEAN CELL VOLUME 89.3 fl (79.4-94.8); MEAN PLT VOLUME 11.8 fl (9.4-12.3); RDW 18.9 % (12.3-16.6)
[2025-06-08 13:36] LABS: CO2 34.0 mmol/L (21-32)
[2025-06-08 13:37] LABS: GLUCOSE,RANDOM 156.0 mg/dL (74-106)
[2025-06-08 13:40] LABS: CREATININE 1.1 mg/dL (0.55-1.3)
[2025-06-08] MEDS: MIDODRINE HCL 2.5 MG TABLET PEG SCH (14:10)
[2025-06-09 08:29] LABS: ABSOLUTE IMMATURE GRANULOCYTES 0.03 x10^3/uL (0.0-0.031); BASOPHILS # 0.01 x10^3/uL (0.01-0.08); EOSINOPHIL % 9.7 % (0.7-5.8); EOSINOPHILS # 0.39 x10^3/uL (0.04-0.36); MCHC 32.1 g/dl (32.2-35.5); MEAN CELL VOLUME 89.8 fl (79.4-94.8); MEAN PLT VOLUME 11.6 fl (9.4-12.3); MONOCYTE # 0.25 x10^3/uL (0.24-0.86); MONOCYTE % 6.2 % (4.7-12.5); RDW 18.7 % (12.3-16.6)
[2025-06-09 08:47] LABS: CO2 33.0 mmol/L (21-32); GLUCOSE,RANDOM 296.0 mg/dL (74-106)
[2025-06-09 08:51] LABS: CREATININE 1.6 mg/dL (0.55-1.3)
[2025-06-09] MEDS: ACETAMINOPHEN 650 MG/20.3 ML ORAL SOLUTION (CUPS) GT PRN (11:07)
[2025-06-09] MEDS: LISINOPRIL 5 MG TABLET PO ONE ×2 (21:49→23:57)
[2025-06-10] MEDS: NITROGLYCERIN 2% OINTMENT - 1GM PACKET TD ONE (02:22)
[2025-06-10 07:21] LABS: BASOPHILS # 0.02 x10^3/uL (0.01-0.08); EOSINOPHIL % 8.5 % (0.7-5.8); RDW 18.4 % (12.3-16.6)
[2025-06-10 07:23] LABS: ABSOLUTE IMMATURE GRANULOCYTES 0.02 x10^3/uL (0.0-0.031); EOSINOPHILS # 0.31 x10^3/uL (0.04-0.36); IMMATURE PLATELET FRACTION # 3.30 x10^3/uL; MCHC 32.1 g/dl (32.2-35.5); MEAN CELL VOLUME 89.8 fl (79.4-94.8); MONOCYTE # 0.34 x10^3/uL (0.24-0.86); MONOCYTE % 9.4 % (4.7-12.5)
[2025-06-10] MEDS: LISINOPRIL 5 MG TABLET PO ONE (21:10)
[2025-06-11 06:39] LABS: ABSOLUTE IMMATURE GRANULOCYTES 0.02 x10^3/uL (0.0-0.031); BASOPHILS # 0.01 x10^3/uL (0.01-0.08); EOSINOPHIL % 7.7 % (0.7-5.8); EOSINOPHILS # 0.27 x10^3/uL (0.04-0.36); MCHC 32.1 g/dl (32.2-35.5); MEAN CELL VOLUME 89.9 fl (79.4-94.8); MEAN PLT VOLUME 11.6 fl (9.4-12.3); MONOCYTE # 0.28 x10^3/uL (0.24-0.86); MONOCYTE % 8.0 % (4.7-12.5); RDW 17.8 % (12.3-16.6)
[2025-06-11] MEDS ORDERED: SODIUM CHLORIDE 250 ML IV PRN (09:49)
[2025-06-11] MEDS: EPOETIN ALFA-EPBX 10,000 UNIT/ML VIAL SQ ONE (17:48)
[2025-06-12 07:09] LABS: CO2 33.0 mmol/L (21-32); GLUCOSE,RANDOM 209.0 mg/dL (74-106)
[2025-06-12 07:13] LABS: CREATININE 1.5 mg/dL (0.55-1.3); SGOT/AST 16.0 U/L (15-37); SGPT/ALT 12.0 U/L (13-61)
[2025-06-12 07:15] LABS: LDH 116.0 U/L (84-246); TOT PROT 7.8 g/dl (6.4-8.2)
[2025-06-12 07:16] LABS: ALK PHOS 314.0 U/L (45-117)
[2025-06-12 07:54] LABS: ABSOLUTE IMMATURE GRANULOCYTES 0.01 x10^3/uL (0.0-0.031); BASOPHILS # 0.01 x10^3/uL (0.01-0.08); EOSINOPHIL % 5.7 % (0.7-5.8); EOSINOPHILS # 0.26 x10^3/uL (0.04-0.36); MCHC 32.3 g/dl (32.2-35.5); MEAN CELL VOLUME 90.3 fl (79.4-94.8); MEAN PLT VOLUME 11.5 fl (9.4-12.3); MONOCYTE # 0.32 x10^3/uL (0.24-0.86); MONOCYTE % 7.0 % (4.7-12.5); RDW 18.1 % (12.3-16.6)
[2025-06-13] MEDS ORDERED: SODIUM CHLORIDE 250 ML IV PRN (10:27)
[2025-06-13] MEDS: FOLIC ACID 1 MG TABLET (FP) PEG SCH (13:32)
[2025-06-13] MEDS: THIAMINE 100 MG TABLET NR SCH (13:32)
[2025-06-13] MEDS: CYANOCOBALAMIN (VITAMIN B-12) 100 MCG TABLET PEG SCH (13:33)
[2025-06-13] MEDS: EPOETIN ALFA-EPBX 10,000 UNIT/ML VIAL IVPUSH ONE (13:43)
[2025-06-13 14:03] LABS: ABSOLUTE IMMATURE GRANULOCYTES 0.01 x10^3/uL (0.0-0.031); BASOPHILS # 0.02 x10^3/uL (0.01-0.08); EOSINOPHIL % 4.9 % (0.7-5.8); EOSINOPHILS # 0.21 x10^3/uL (0.04-0.36); MCHC 31.5 g/dl (32.2-35.5); MEAN CELL VOLUME 92.5 fl (79.4-94.8); MEAN PLT VOLUME 11.5 fl (9.4-12.3); MONOCYTE # 0.27 x10^3/uL (0.24-0.86); MONOCYTE % 6.3 % (4.7-12.5); RDW 18.2 % (12.3-16.6)
[2025-06-13 14:11] LABS: INR 1.1 (0.83-1.09); PROTHROMBIN TIME (PATIENT) 12.1 SEC (9.7-13.0)
[2025-06-13 14:52] LABS: CO2 32.0 mmol/L (21-32); GLUCOSE,RANDOM 149.0 mg/dL (74-106)
[2025-06-13 14:54] LABS: CREATININE 1.1 mg/dL (0.55-1.3); SGOT/AST 21.0 U/L (15-37); SGPT/ALT 17.0 U/L (13-61)
[2025-06-13 14:55] LABS: TOT PROT 7.9 g/dl (6.4-8.2)
[2025-06-13 15:08] LABS: ALK PHOS 348.0 U/L (45-117)
[2025-06-14 06:49] LABS: MCHC 31.1 g/dl (32.2-35.5)
[2025-06-14 06:51] LABS: ABSOLUTE IMMATURE GRANULOCYTES 0.00 x10^3/uL (0.0-0.031); BASOPHILS # 0.02 x10^3/uL (0.01-0.08); EOSINOPHIL % 5.2 % (0.7-5.8); EOSINOPHILS # 0.17 x10^3/uL (0.04-0.36); IMMATURE PLATELET FRACTION # 4.60 x10^3/uL; MEAN CELL VOLUME 93.3 fl (79.4-94.8); MONOCYTE # 0.25 x10^3/uL (0.24-0.86); MONOCYTE % 7.6 % (4.7-12.5); RDW 18.0 % (12.3-16.6)
[2025-06-14 07:12] LABS: CO2 32.0 mmol/L (21-32); GLUCOSE,RANDOM 201.0 mg/dL (74-106)
[2025-06-14 07:15] LABS: CREATININE 1.5 mg/dL (0.55-1.3)
[2025-06-15] MEDS: ONDANSETRON 4 MG/2 ML VIAL IVPUSH ONE (08:50)
[2025-06-15] MEDS ORDERED: SODIUM CHLORIDE 250 ML IV PRN (08:57)
[2025-06-15] MEDS: MIDODRINE HCL 5 MG TABLET PEG SCH (09:45)
[2025-06-15 10:18] LABS: ABSOLUTE IMMATURE GRANULOCYTES 0.01 x10^3/uL (0.0-0.031); BASOPHILS # 0.01 x10^3/uL (0.01-0.08); EOSINOPHIL % 3.1 % (0.7-5.8); EOSINOPHILS # 0.11 x10^3/uL (0.04-0.36); MCHC 31.9 g/dl (32.2-35.5); MEAN CELL VOLUME 92.5 fl (79.4-94.8); MEAN PLT VOLUME 11.5 fl (9.4-12.3); MONOCYTE # 0.08 x10^3/uL (0.24-0.86); MONOCYTE % 2.2 % (4.7-12.5); RDW 18.0 % (12.3-16.6)
[2025-06-15] MEDS: EPOETIN ALFA-EPBX 10,000 UNIT/ML VIAL SQ ONE (11:08)
[2025-06-15] MEDS ORDERED: DEXTROSE 50%-WATER 25 GM/50 ML DISP.SYRIN ONE (16:18)
[2025-06-15] MEDS: DEXTROSE 50%-WATER - 25 GM/50 ML VIAL IVPUSH ONE (16:20)
[2025-06-15] MEDS ORDERED: ACETAMINOPHEN 650 MG/20.3 ML ORAL SOLUTION (CUPS) GT PRN (17:56)
[2025-06-15] MEDS: DEXTROSE 50%-WATER 25 GM/50 ML DISP.SYRIN IVPUSH ONE (18:17)
[2025-06-15] MEDS: INSULIN ASPART SLIDING SCALE (NOVOLOG) 1 VIAL SQ SCH (22:29)
[2025-06-15] MEDS: VALPROATE SODIUM 250 MG/5 ML UNIT DOSE CUP PEG SCH (22:30)
[2025-06-15] MEDS: PANTOPRAZOLE SODIUM 40 MG VIAL IVPUSH SCH (22:31)
[2025-06-15] MEDS: NYSTATIN 100,000 UNIT/GM TOPICAL CREAM 15 GM TUBE TP SCH (22:32)
[2025-06-15] MEDS: INSULIN GLARGINE (LANTUS) 100 UNITS/ML UNITS SQ SCH (22:33)
[2025-06-16] MEDS: VALPROATE SODIUM 250 MG/5 ML UNIT DOSE CUP PEG SCH (06:36)
[2025-06-16 09:58] LABS: ABSOLUTE IMMATURE GRANULOCYTES 0.02 x10^3/uL (0.0-0.031); EOSINOPHIL % 3.5 % (0.7-5.8); EOSINOPHILS # 0.19 x10^3/uL (0.04-0.36); MCHC 30.7 g/dl (32.2-35.5); MEAN CELL VOLUME 94.0 fl (79.4-94.8)
[2025-06-16 10:00] LABS: BASOPHILS # 0.02 x10^3/uL (0.01-0.08); IMMATURE PLATELET FRACTION # 4.60 x10^3/uL; MONOCYTE # 0.35 x10^3/uL (0.24-0.86); MONOCYTE % 6.5 % (4.7-12.5); RDW 18.3 % (12.3-16.6)
[2025-06-16] MEDS: CYANOCOBALAMIN (VITAMIN B-12) 100 MCG TABLET PEG SCH (11:09)
[2025-06-16] MEDS: ASCORBIC ACID 500 MG/5 ML UNIT DOSE CUP PEG SCH (11:09)
[2025-06-16] MEDS: THIAMINE 100 MG TABLET PO SCH (11:09)
[2025-06-16] MEDS: FOLIC ACID 1 MG TABLET (FP) PEG SCH (11:09)
[2025-06-16 12:11] LABS: ABSOLUTE IMMATURE GRANULOCYTES 0.01 x10^3/uL (0.0-0.031); BASOPHILS # 0.02 x10^3/uL (0.01-0.08); RDW 18.4 % (12.3-16.6)
[2025-06-16 12:13] LABS: EOSINOPHIL % 2.7 % (0.7-5.8); EOSINOPHILS # 0.15 x10^3/uL (0.04-0.36); IMMATURE PLATELET FRACTION # 5.00 x10^3/uL; MCHC 31.6 g/dl (32.2-35.5); MEAN CELL VOLUME 94.3 fl (79.4-94.8); MEAN PLT VOLUME 11.2 fl (9.4-12.3); MONOCYTE # 0.34 x10^3/uL (0.24-0.86); MONOCYTE % 6.1 % (4.7-12.5)
[2025-06-16 18:47] VITALS: RESP 19
[2025-06-17 13:59] VITALS: BP 159/72; TEMP 97.3
[2025-06-17 15:32] VITALS: PULSE 85
== END 2025-06-17 18:21 | DRG 698 ==
LOC: JER 13:11 → JERBED 14:56 → J8W 19:51 → J5S 23:06 → OBSVTOIN 05-26 12:46 → J4S 05-27 20:00 → JICU 05-29 18:33 → J2W 06-03 14:24 → J5S 06-15 17:34
PROVIDERS: ADMIT Internal Medicine; ATTEND Internal Medicine
PROC: 30233N1 Transfusion of Nonautologous Red Blood Cells into Peripheral Vein, Percutaneous Approach (ICD-10-PCS; 2025-05-25)
PROC: B415YZZ Fluoroscopy of Inferior Mesenteric Artery using Other Contrast (ICD-10-PCS; principal; 2025-05-27)
PROC: B414YZZ Fluoroscopy of Superior Mesenteric Artery using Other Contrast (ICD-10-PCS; 2025-05-27)
PROC: 5A1D70Z Performance of Urinary Filtration, Intermittent, Less than 6 Hours Per Day (ICD-10-PCS; 2025-05-27)
DX: T82.41XA Breakdown (mechanical) of vascular dialysis catheter, initial encounter (principal); A41.9 Sepsis, unspecified organism; J18.9 Pneumonia, unspecified organism; R53.2 Functional quadriplegia; N18.6 End stage renal disease; R65.21 Severe sepsis with septic shock; G93.1 Anoxic brain damage, not elsewhere classified; J96.11 Chronic respiratory failure with hypoxia; E87.1 Hypo-osmolality and hyponatremia; K92.2 Gastrointestinal hemorrhage, unspecified; D61.818 Other pancytopenia; D62 Acute posthemorrhagic anemia; B49 Unspecified mycosis; G40.909 Epilepsy, unspecified, not intractable, without status epilepticus; Z93.1 Gastrostomy status; Z93.0 Tracheostomy status; L89.152 Pressure ulcer of sacral region, stage 2; J44.9 Chronic obstructive pulmonary disease, unspecified; E11.9 Type 2 diabetes mellitus without complications; D64.9 Anemia, unspecified; E87.5 Hyperkalemia; I69.320 Aphasia following cerebral infarction; D63.8 Anemia in other chronic diseases classified elsewhere; E87.6 Hypokalemia; Z99.2 Dependence on renal dialysis; Y83.8 Other surgical procedures as the cause of abnormal reaction of the patient, or of later complication, without mention of misadventure at the time of the procedure
CPT/HCPCS: 36415; 36430; 37244; 71045-TC-FY; 74174-TC; 76937; 80048; 80053; 80164; 82962; 83010; 83605; 83615; 83735; 84100; 84439; 84443; 84481; 85025; 85027; 85610; 85730; 86850; 86900; 86901; 86922; 87040; 87070; 87205; 87340; 87481; 87637-QW; 93005; 93010; 94640; 99291; 99292; C1769; C1887; C1894; G0378; J2597; J2997; P9038; P9047; P9058; Q5106; Q9967

== ENCOUNTER 2025-06-19 00:27 | Inpatient (IN) | payer OTHER ==
[2025-06-19] MEDS ORDERED: ALBUTEROL SO4 0.083% IH SOL 2.5 MG/3 ML VIAL.NEB. NEB ONE (00:55)
[2025-06-19 01:06] LABS: ABSOLUTE IMMATURE GRANULOCYTES 0.03 x10^3/uL (0.0-0.031); BASOPHILS # 0.01 x10^3/uL (0.01-0.08); EOSINOPHIL % 0.0 % (0.7-5.8); EOSINOPHILS # 0.00 x10^3/uL (0.04-0.36); MCHC 31.7 g/dl (32.2-35.5); MEAN CELL VOLUME 93.2 fl (79.4-94.8); MONOCYTE # 0.26 x10^3/uL (0.24-0.86); MONOCYTE % 4.1 % (4.7-12.5); RDW 18.5 % (12.3-16.6)
[2025-06-19 01:13] LABS: INR 1.24 (0.83-1.09); PROTHROMBIN TIME (PATIENT) 13.5 SEC (9.7-13.0)
[2025-06-19 01:15] LABS: BG HCT 28.0 % (32.4-45.2); VENOUS BASE EXCESS 1.3 mmol/L (-2-2); VENOUS O2 SATURATION 88.9 % (70-80); VENOUS PCO2 65.3 mmHg (38-52); VENOUS PH 7.268 (7.310-7.410)
[2025-06-19 01:16] LABS: ACTIVATED PTT 40.6 SECONDS (25.2-36.5)
[2025-06-19 01:32] LABS: CO2 29.0 mmol/L (21-32); GLUCOSE,RANDOM 340.0 mg/dL (74-106)
[2025-06-19] MEDS: ALBUTEROL SO4 0.083% IH SOL 2.5 MG/3 ML VIAL.NEB. NEB ONE (01:34)
[2025-06-19 01:35] LABS: CREATININE 2.7 mg/dL (0.55-1.3); SGOT/AST 26.0 U/L (15-37); SGPT/ALT 14.0 U/L (13-61)
[2025-06-19 01:37] LABS: TOT PROT 8.6 g/dl (6.4-8.2)
[2025-06-19 01:42] LABS: ALK PHOS 411.0 U/L (45-117)
[2025-06-19] MEDS ORDERED: PIPERACILLIN/TAZOB 4.5 GM 4.5 GM/100 ML BAG IVPB ONE (01:50)
[2025-06-19] MEDS ORDERED: VANCOMYCIN 1 GM PREMIX (F) 1 GM/200 ML BAG ONE (01:50)
[2025-06-19] MEDS: PIPERACILLIN/TAZOB 4.5 GM 4.5 GM in DEXTROSE 5%-WATER 100 ML IVPB ONE (01:55)
[2025-06-19] MEDS: VANCOMYCIN 1,000 MG in DEXTROSE 5%-WATER - 250 ML IVPB ONE (04:09)
[2025-06-19] MEDS: INSULIN ASPART SLIDING SCALE (NOVOLOG) 1 VIAL SQ SCH (07:57)
[2025-06-19] MEDS ORDERED: INSULIN (NOVOLOG MIX 70/30) 100 UNITS/ML MDV SQ ONE (08:03)
[2025-06-19] MEDS: METOCLOPRAMIDE HCL 10 MG/10 ML UNIT DOSE CUP GT SCH (10:26)
[2025-06-19] MEDS: PIPERACILLIN/TAZOB 3.375 GM 3.375 GM in DEXTROSE 5%-WATER - 50 ML IVPB SCH (10:28)
[2025-06-19] MEDS: APIXABAN 5 MG TABLET GT SCH (12:19)
[2025-06-19] MEDS: VALPROATE SODIUM 250 MG/5 ML UNIT DOSE CUP PEG SCH (12:19)
[2025-06-19] MEDS: POLYETHYLENE GLYCOL (HEALTHYLAX) 3350 17 GM PACKET GT SCH (12:20)
[2025-06-19] MEDS: THIAMINE 100 MG TABLET NR SCH (12:20)
[2025-06-19] MEDS: CYANOCOBALAMIN (VITAMIN B-12) 100 MCG TABLET PEG SCH (12:20)
[2025-06-19] MEDS: FOLIC ACID 1 MG TABLET (FP) PEG SCH (12:20)
[2025-06-19] MEDS: ASCORBIC ACID 500 MG TABLET (FP) PEG SCH (12:20)
[2025-06-19] MEDS: ALBUTEROL SO4 2.5/IPRATROPIUM 0.5 INH SOL 3 ML VIAL.NEB. NEB SCH (12:25)
[2025-06-19] MEDS ORDERED: SODIUM CHLORIDE 250 ML IV PRN (13:15)
[2025-06-19] MEDS: EPOETIN ALFA-EPBX 4,000 UNIT/ML VIAL SQ ONE (17:52)
[2025-06-19] MEDS: VANCOMYCIN PREMIX 1.75 GM 1,750 MG/350 ML PIGGYBACK IVPB SCH (18:52)
[2025-06-19] MEDS: VANCOMYCIN PREMIX 1.75 GM 1,750 MG/350 ML PIGGYBACK IVPB ONE (21:25)
[2025-06-19] MEDS: SENNOSIDES 8.8 MG/5 ML SYRUP GT SCH (21:25)
[2025-06-20 04:35] LABS: HIV INTERPRETATION NEGATIVE (NEGATIVE)
[2025-06-20 06:14] LABS: HEPATITIS B SURF AG NON-MATERN NON-REACTIVE (NONREACTIVE)
[2025-06-20 06:57] LABS: BASOPHILS # 0.01 x10^3/uL (0.01-0.08); EOSINOPHIL % 0.2 % (0.7-5.8); EOSINOPHILS # 0.01 x10^3/uL (0.04-0.36); MONOCYTE # 0.75 x10^3/uL (0.24-0.86); RDW 18.6 % (12.3-16.6)
[2025-06-20 06:59] LABS: ABSOLUTE IMMATURE GRANULOCYTES 0.02 x10^3/uL (0.0-0.031); IMMATURE PLATELET FRACTION # 9.50 x10^3/uL; MCHC 31.5 g/dl (32.2-35.5); MEAN CELL VOLUME 93.6 fl (79.4-94.8); MEAN PLT VOLUME 13.5 fl (9.4-12.3); MONOCYTE % 12.7 % (4.7-12.5)
[2025-06-20 07:36] LABS: CO2 30.0 mmol/L (21-32); GLUCOSE,RANDOM 358.0 mg/dL (74-106)
[2025-06-20 07:39] LABS: CREATININE 1.9 mg/dL (0.55-1.3)
[2025-06-20] MEDS: PIPERACILLIN/TAZOB 3.375 GM 3.375 GM in DEXTROSE 5%-WATER - 50 ML IVPB SCH (09:12)
[2025-06-20] MEDS ORDERED: Darbepoetin Alfa in Polysorbat 40 MCG/0.4 DISP.SYRIN SQ SCH (10:00)
[2025-06-20] MEDS ORDERED: CEFEPIME HCL 1 GM VIAL (RESTRICTED TO ID) IVPB SCH (10:45)
[2025-06-20] MEDS: morphine CARPU-JECT 2 MG/1 ML DISP.SYRIN SQ PRN (11:31)
[2025-06-20] MEDS: CEFEPIME HCL/D5W 1 GM/50 ML BAG IVPB SCH (11:34)
[2025-06-20] MEDS: VANCOMYCIN PREMIX 1.75 GM 1,750 MG/350 ML PIGGYBACK IVPB SCH (12:16)
[2025-06-20 12:23] LABS: LDL CHOLESTEROL (ONLY SJRH) 65.0 mg/dL (5-100)
[2025-06-20 13:04] LABS: N-TERMINAL BNP 16979.4 pg/ml (5-125)
[2025-06-20] MEDS ORDERED: ALBUTEROL SO4 2.5/IPRATROPIUM 0.5 INH SOL 3 ML VIAL.NEB. NEB PRN (14:08)
[2025-06-20] MEDS ORDERED: FUROSEMIDE 40 MG/4 ML INJECTABLE VIAL ONE (14:10)
[2025-06-20] MEDS: FUROSEMIDE 40 MG/4 ML INJECTABLE VIAL IVPUSH ONE (14:12)
[2025-06-20] MEDS: methylPREDNISolone NA SUCC 40 MG/1 ML VIAL IVPUSH ONE (14:13)
[2025-06-20] MEDS ORDERED: MIDAZOLAM HCL 2 MG/2 ML SINGLE DOSE VIAL ONE (15:15)
[2025-06-20] MEDS ORDERED: PROPOFOL 1,000,000 MCG/100 ML VIAL ONE (15:17)
[2025-06-20] MEDS ORDERED: RAPID SEQUENCE INTUBATION KIT NR ONE (15:17)
[2025-06-20 15:18] LABS: ARTERIAL BLD GAS O2 SATURATION 89.6 % (95-98); ARTERIAL BLOOD GAS BASE EXCESS 0.1 mmol/L (-2-2); ARTERIAL BLOOD GAS PCO2 65.60 mmHg (35-45); ARTERIAL BLOOD GAS PO2 66.8 mmHg (80-100); BG HCT 31.0 % (32.4-45.2)
[2025-06-20 15:19] LABS: ALLENS TEST POSITIVE
[2025-06-20] MEDS: methylPREDNISolone NA SUCC 125 MG/2 ML VIAL IVPUSH ONE (15:48)
[2025-06-20] MEDS: MIDAZOLAM HCL 2 MG/2 ML SINGLE DOSE VIAL IVPUSH ONE (15:48)
[2025-06-20] MEDS: PROPOFOL 200 MG/20 ML VIAL IVPUSH ONE (15:57)
[2025-06-20] MEDS: PROPOFOL 1,000,000 MCG/100 ML VIAL IVPB SCH (16:23)
[2025-06-20 19:53] LABS: IMMATURE PLATELET FRACTION # 6.40 x10^3/uL; MCHC 31.6 g/dl (32.2-35.5); MEAN CELL VOLUME 93.6 fl (79.4-94.8); MEAN PLT VOLUME 12.7 fl (9.4-12.3); RDW 18.4 % (12.3-16.6)
[2025-06-20 21:08] LABS: ARTERIAL BLD GAS O2 SATURATION 99.5 % (95-98); ARTERIAL BLOOD GAS BASE EXCESS -0.3 mmol/L (-2-2); ARTERIAL BLOOD GAS PCO2 42.70 mmHg (35-45); ARTERIAL BLOOD GAS PO2 235.8 mmHg (80-100); BG HCT 20.0 % (32.4-45.2); O2 CONTENT 0.99 % vol
[2025-06-20 21:09] LABS: VENT MODE V-A/C
[2025-06-20 21:10] LABS: VENT RATE 16
[2025-06-21] MEDS: CEFTAZIDIME/AVIBACTAM 0.94 GM in DEXTROSE 5%-WATER - 100 ML IVPB SCH (01:21)
[2025-06-21] MEDS: methylPREDNISolone NA SUCC 40 MG/1 ML VIAL IVPUSH SCH ×2 (01:21→14:23)
[2025-06-21] MEDS: INSULIN GLARGINE (LANTUS) 100 UNITS/ML UNITS SQ SCH (04:42)
[2025-06-21 06:43] LABS: ABSOLUTE IMMATURE GRANULOCYTES 0.02 x10^3/uL (0.0-0.031); BASOPHILS # 0.01 x10^3/uL (0.01-0.08); EOSINOPHIL % 0.0 % (0.7-5.8); EOSINOPHILS # 0.00 x10^3/uL (0.04-0.36); MCHC 32.2 g/dl (32.2-35.5); MEAN CELL VOLUME 89.4 fl (79.4-94.8); MEAN PLT VOLUME 12.4 fl (9.4-12.3); MONOCYTE # 0.14 x10^3/uL (0.24-0.86); MONOCYTE % 3.4 % (4.7-12.5); RDW 18.0 % (12.3-16.6)
[2025-06-21 07:02] LABS: CO2 30.0 mmol/L (21-32)
[2025-06-21 07:03] LABS: GLUCOSE,RANDOM 287.0 mg/dL (74-106)
[2025-06-21 07:05] LABS: SGOT/AST 14.0 U/L (15-37); SGPT/ALT 12.0 U/L (13-61)
[2025-06-21 07:06] LABS: CREATININE 2.3 mg/dL (0.55-1.3)
[2025-06-21 07:07] LABS: TOT PROT 7.9 g/dl (6.4-8.2)
[2025-06-21 07:59] LABS: ALK PHOS 346.0 U/L (45-117)
[2025-06-21] MEDS: SCOPOLAMINE HYDROBROMIDE 1 PATCH PATCH.TD72 TD SCH (09:19)
[2025-06-21] MEDS ORDERED: SODIUM CHLORIDE 250 ML IV PRN (10:00)
[2025-06-21] MEDS: ALBUTEROL SO4 2.5/IPRATROPIUM 0.5 INH SOL 3 ML VIAL.NEB. NEB SCH (12:04)
[2025-06-22 06:31] LABS: MCHC 32.9 g/dl (32.2-35.5); MEAN CELL VOLUME 89.6 fl (79.4-94.8); MEAN PLT VOLUME 11.9 fl (9.4-12.3); RDW 18.2 % (12.3-16.6)
[2025-06-22 06:48] LABS: CO2 32.0 mmol/L (21-32); GLUCOSE,RANDOM 200.0 mg/dL (74-106)
[2025-06-22 06:51] LABS: CREATININE 1.4 mg/dL (0.55-1.3); SGOT/AST 15.0 U/L (15-37); SGPT/ALT 12.0 U/L (13-61)
[2025-06-22 06:53] LABS: TOT PROT 7.7 g/dl (6.4-8.2)
[2025-06-22 07:07] LABS: ALK PHOS 290.0 U/L (45-117)
[2025-06-22] MEDS ORDERED: CLOBAZAM 2.5 MG/ML PO SCH (22:00)
[2025-06-22] MEDS: CLOBAZAM PEG SCH (22:15)
[2025-06-23 06:25] LABS: ABSOLUTE IMMATURE GRANULOCYTES 0.01 x10^3/uL (0.0-0.031); BASOPHILS # 0.00 x10^3/uL (0.01-0.08); EOSINOPHIL % 0.0 % (0.7-5.8); EOSINOPHILS # 0.00 x10^3/uL (0.04-0.36); MCHC 32.1 g/dl (32.2-35.5); MEAN CELL VOLUME 89.8 fl (79.4-94.8); MEAN PLT VOLUME 11.9 fl (9.4-12.3); MONOCYTE # 0.20 x10^3/uL (0.24-0.86); MONOCYTE % 7.7 % (4.7-12.5); RDW 17.9 % (12.3-16.6)
[2025-06-23 06:45] LABS: CO2 30.0 mmol/L (21-32); GLUCOSE,RANDOM 205.0 mg/dL (74-106)
[2025-06-23 06:48] LABS: SGOT/AST 16.0 U/L (15-37); SGPT/ALT 12.0 U/L (13-61)
[2025-06-23 06:49] LABS: CREATININE 2.0 mg/dL (0.55-1.3)
[2025-06-23 06:50] LABS: TOT PROT 7.7 g/dl (6.4-8.2)
[2025-06-23 06:51] LABS: ALK PHOS 279.0 U/L (45-117)
[2025-06-23] MEDS: APIXABAN 5 MG TABLET GT SCH (11:09)
[2025-06-24 06:52] LABS: ABSOLUTE IMMATURE GRANULOCYTES 0.02 x10^3/uL (0.0-0.031); BASOPHILS # 0.00 x10^3/uL (0.01-0.08); EOSINOPHIL % 0.0 % (0.7-5.8); EOSINOPHILS # 0.00 x10^3/uL (0.04-0.36); MCHC 32.0 g/dl (32.2-35.5); MEAN CELL VOLUME 90.6 fl (79.4-94.8); MEAN PLT VOLUME 12.6 fl (9.4-12.3); MONOCYTE # 0.20 x10^3/uL (0.24-0.86); MONOCYTE % 6.5 % (4.7-12.5); RDW 17.9 % (12.3-16.6)
[2025-06-24 06:57] LABS: CO2 28.0 mmol/L (21-32); GLUCOSE,RANDOM 257.0 mg/dL (74-106)
[2025-06-24 07:01] LABS: SGOT/AST 12.0 U/L (15-37); SGPT/ALT 13.0 U/L (13-61)
[2025-06-24 07:03] LABS: ALK PHOS 300.0 U/L (45-117); TOT PROT 8.5 g/dl (6.4-8.2)
[2025-06-24 07:12] LABS: CREATININE 2.5 mg/dL (0.55-1.3)
[2025-06-24] MEDS: EPOETIN ALFA-EPBX 10,000 UNIT/ML VIAL IVPUSH ONE (08:49)
[2025-06-24] MEDS ORDERED: SODIUM CHLORIDE 250 ML IV PRN (09:00)
[2025-06-24] MEDS ORDERED: morphine CARPU-JECT 2 MG/1 ML DISP.SYRIN SQ PRN (12:39)
[2025-06-24 15:37] VITALS: BMI 43.0
[2025-06-25 07:30] LABS: ABSOLUTE IMMATURE GRANULOCYTES 0.02 x10^3/uL (0.0-0.031); BASOPHILS # 0.00 x10^3/uL (0.01-0.08); EOSINOPHIL % 0.0 % (0.7-5.8); EOSINOPHILS # 0.00 x10^3/uL (0.04-0.36); MCHC 31.5 g/dl (32.2-35.5); MEAN CELL VOLUME 92.3 fl (79.4-94.8); MEAN PLT VOLUME 12.5 fl (9.4-12.3); MONOCYTE # 0.23 x10^3/uL (0.24-0.86); MONOCYTE % 8.7 % (4.7-12.5); RDW 19.1 % (12.3-16.6)
[2025-06-25 09:34] LABS: GLUCOSE,RANDOM 223 mg/dL (74-106)
[2025-06-25 09:35] LABS: TOT PROT 7.4 g/dl (6.4-8.2)
[2025-06-25 09:36] LABS: CO2 27 mmol/L (21-32)
[2025-06-25 09:37] LABS: ALK PHOS 284 U/L (40-150)
[2025-06-25 09:40] LABS: CREATININE 1.38 mg/dL (0.55-1.3); SGOT/AST 13 U/L (5-34); SGPT/ALT < 6 U/L (0-55)
[2025-06-25] MEDS: MIDAZOLAM HCL 2 MG/2 ML SINGLE DOSE VIAL IVPUSH PRN (10:43)
[2025-06-25] MEDS: SODIUM CHLORIDE 500 ML IV STA (11:08)
[2025-06-26 06:41] LABS: ABSOLUTE IMMATURE GRANULOCYTES 0.03 x10^3/uL (0.0-0.031); BASOPHILS # 0.00 x10^3/uL (0.01-0.08); EOSINOPHIL % 0.0 % (0.7-5.8); EOSINOPHILS # 0.00 x10^3/uL (0.04-0.36); MCHC 31.5 g/dl (32.2-35.5); MEAN CELL VOLUME 93.5 fl (79.4-94.8); MEAN PLT VOLUME 12.7 fl (9.4-12.3); MONOCYTE # 0.35 x10^3/uL (0.24-0.86); MONOCYTE % 11.2 % (4.7-12.5); RDW 18.8 % (12.3-16.6)
[2025-06-26 07:34] LABS: GLUCOSE,RANDOM 172 mg/dL (74-106); TOT PROT 7.1 g/dl (6.4-8.2)
[2025-06-26 07:35] LABS: CO2 27 mmol/L (21-32)
[2025-06-26 07:40] LABS: CREATININE 1.72 mg/dL (0.55-1.3); SGOT/AST 10 U/L (5-34)
[2025-06-26 08:18] LABS: ALK PHOS 265 U/L (40-150); SGPT/ALT < 6 U/L (0-55)
[2025-06-26] MEDS ORDERED: ALBUTEROL SO4 2.5/IPRATROPIUM 0.5 INH SOL 3 ML VIAL.NEB. NEB PRN (08:27)
[2025-06-26] MEDS ORDERED: SODIUM CHLORIDE 250 ML IV PRN (08:40)
[2025-06-26] MEDS: EPOETIN ALFA-EPBX 10,000 UNIT/ML VIAL SQ ONE (09:38)
[2025-06-26 09:54] LABS: MCHC 31.2 g/dl (32.2-35.5); MEAN CELL VOLUME 94.1 fl (79.4-94.8); MEAN PLT VOLUME 12.9 fl (9.4-12.3); RDW 19.2 % (12.3-16.6)
[2025-06-26] MEDS: MIDODRINE HCL 5 MG TABLET PO ONE (11:02)
[2025-06-26] MEDS: NYSTATIN 100,000 UNIT/GM TOPICAL CREAM 15 GM TUBE TP SCH (12:53)
[2025-06-26] MEDS: AMINO ACIDS/PROTEIN HYDROLYS 30 ML LIQUID.PKT PO SCH (17:08)
[2025-06-27 06:35] LABS: ABSOLUTE IMMATURE GRANULOCYTES 0.02 x10^3/uL (0.0-0.031); BASOPHILS # 0.00 x10^3/uL (0.01-0.08); EOSINOPHIL % 2.2 % (0.7-5.8); EOSINOPHILS # 0.08 x10^3/uL (0.04-0.36); MCHC 31.1 g/dl (32.2-35.5); MEAN CELL VOLUME 96.6 fl (79.4-94.8); MEAN PLT VOLUME 12.2 fl (9.4-12.3); MONOCYTE # 0.31 x10^3/uL (0.24-0.86); MONOCYTE % 8.4 % (4.7-12.5); RDW 19.5 % (12.3-16.6)
[2025-06-27 07:17] LABS: GLUCOSE,RANDOM 153 mg/dL (74-106); TOT PROT 7.8 g/dl (6.4-8.2)
[2025-06-27 07:18] LABS: CO2 29 mmol/L (21-32)
[2025-06-27 07:23] LABS: CREATININE 1.24 mg/dL (0.55-1.3); SGOT/AST 13 U/L (5-34)
[2025-06-27 07:25] LABS: ALK PHOS 255 U/L (40-150); SGPT/ALT < 6 U/L (0-55)
[2025-06-27] MEDS ORDERED: KCL 20 MEQ PREMIX BAG 20 MEQ/100 ML INFUS.BAG IVPB SCH (08:00)
[2025-06-27] MEDS: KCL 10 MEQ IVPB 10 MEQ/100 ML INFUS.BAG IVPB SCH (09:39)
[2025-06-27] MEDS: POTASSIUM PHOSPHATE 15 MM in SODIUM CHLORIDE 100 ML IVPB ONE (09:39)
[2025-06-27] MEDS: MAGNESIUM SULFATE IN WATER 2 GM/50 ML IVPB IVPB ONE (09:42)
[2025-06-27] MEDS: MIDODRINE HCL 5 MG TABLET PO ONE (16:05)
[2025-06-27] MEDS ORDERED: SODIUM CHLORIDE 0.9% 500 ML INFUS.BAG IV ONE (16:36)
[2025-06-27] MEDS: MIDODRINE HCL 5 MG TABLET PO SCH (18:22)
[2025-06-27] MEDS: SODIUM CHLORIDE 0.9% 250 ML INFUS.BAG IV ONE (18:47)
[2025-06-27] MEDS ORDERED: MIDODRINE HCL 5 MG TABLET PO SCH (22:57)
[2025-06-27] MEDS: CALCIUM GLUCONATE IN NACL 1 GM/50 ML BAG IVPB ONE (23:30)
[2025-06-28 07:03] LABS: MCHC 31.0 g/dl (32.2-35.5); MEAN CELL VOLUME 97.0 fl (79.4-94.8); MEAN PLT VOLUME 12.2 fl (9.4-12.3); RDW 19.9 % (12.3-16.6)
[2025-06-28 07:23] LABS: GLUCOSE,RANDOM 171 mg/dL (74-106)
[2025-06-28 07:24] LABS: TOT PROT 7.6 g/dl (6.4-8.2)
[2025-06-28 07:25] LABS: CO2 29 mmol/L (21-32)
[2025-06-28 07:26] LABS: ALK PHOS 252 U/L (40-150)
[2025-06-28 07:29] LABS: SGOT/AST 10 U/L (5-34)
[2025-06-28 07:30] LABS: CREATININE 1.76 mg/dL (0.55-1.3)
[2025-06-28 07:58] LABS: SGPT/ALT < 6 U/L (0-55)
[2025-06-28] MEDS: KCL 10 MEQ IVPB 10 MEQ/100 ML INFUS.BAG IVPB SCH (09:28)
[2025-06-28] MEDS ORDERED: SODIUM CHLORIDE 250 ML IV PRN (10:00)
[2025-06-28] MEDS: MIDODRINE HCL 5 MG TABLET PO SCH (12:35)
[2025-06-28] MEDS: BANATROL PLUS POWDER PACKET PO SCH (13:05)
[2025-06-28] MEDS: EPOETIN ALFA-EPBX 10,000 UNIT/ML VIAL SQ ONE (13:26)
[2025-06-29] MEDS: SCOPOLAMINE HYDROBROMIDE 1 PATCH PATCH.TD72 TD SCH (14:09)
[2025-06-30] MEDS: ACETAMINOPHEN 1000 MG/100 ML BAG IVPB ONE (00:08)
[2025-06-30 07:09] LABS: MCHC 30.9 g/dl (32.2-35.5); MEAN CELL VOLUME 94.6 fl (79.4-94.8); MEAN PLT VOLUME 12.7 fl (9.4-12.3); RDW 20.3 % (12.3-16.6)
[2025-06-30 07:30] LABS: GLUCOSE,RANDOM 288.0 mg/dL (74-106)
[2025-06-30 07:31] LABS: TOT PROT 7.3 g/dl (6.4-8.2)
[2025-06-30 07:32] LABS: CO2 27.0 mmol/L (21-32)
[2025-06-30 07:36] LABS: CREATININE 1.88 mg/dL (0.55-1.3); SGOT/AST 19.0 U/L (5-34); SGPT/ALT 6.0 U/L (0-55)
[2025-06-30 07:45] LABS: ALK PHOS 287.0 U/L (40-150)
[2025-06-30] MEDS: methylPREDNISolone NA SUCC 40 MG/1 ML VIAL IVPUSH SCH ×3 (09:46→21:23)
[2025-06-30] MEDS ORDERED: SODIUM CHLORIDE 250 ML IV PRN (13:53)
[2025-06-30] MEDS ORDERED: INSULIN GLARGINE (LANTUS) 100 UNITS/ML UNITS SQ ONE (22:38)
[2025-07-01 07:10] LABS: MCHC 30.9 g/dl (32.2-35.5); MEAN CELL VOLUME 94.8 fl (79.4-94.8); MEAN PLT VOLUME 12.2 fl (9.4-12.3); RDW 20.2 % (12.3-16.6)
[2025-07-01 07:31] LABS: GLUCOSE,RANDOM 236.0 mg/dL (74-106)
[2025-07-01 07:32] LABS: TOT PROT 7.9 g/dl (6.4-8.2)
[2025-07-01 07:33] LABS: CO2 28.0 mmol/L (21-32)
[2025-07-01 07:35] LABS: ALK PHOS 278.0 U/L (40-150)
[2025-07-01 07:37] LABS: SGOT/AST 14.0 U/L (5-34); SGPT/ALT 6.0 U/L (0-55)
[2025-07-01 07:38] LABS: CREATININE 2.25 mg/dL (0.55-1.3)
[2025-07-01] MEDS: ALBUMIN HUMAN 25% 12.5 GM/50 ML VIAL IV SCH (12:33)
[2025-07-01] MEDS: morphine CARPU-JECT 2 MG/1 ML DISP.SYRIN IVPUSH PRN (15:23)
[2025-07-02 07:00] LABS: ABSOLUTE IMMATURE GRANULOCYTES 0.07 x10^3/uL (0.0-0.031); BASOPHILS # 0.01 x10^3/uL (0.01-0.08); EOSINOPHIL % 0.2 % (0.7-5.8); EOSINOPHILS # 0.01 x10^3/uL (0.04-0.36); MCHC 29.9 g/dl (32.2-35.5); MEAN CELL VOLUME 95.5 fl (79.4-94.8); MEAN PLT VOLUME 12.6 fl (9.4-12.3); MONOCYTE # 0.35 x10^3/uL (0.24-0.86); MONOCYTE % 8.2 % (4.7-12.5); RDW 19.9 % (12.3-16.6)
[2025-07-02 07:04] LABS: GLUCOSE,RANDOM 303.0 mg/dL (74-106)
[2025-07-02 07:05] LABS: TOT PROT 7.8 g/dl (6.4-8.2)
[2025-07-02 07:06] LABS: CO2 28.0 mmol/L (21-32)
[2025-07-02 07:10] LABS: SGOT/AST 14.0 U/L (5-34); SGPT/ALT 6.0 U/L (0-55)
[2025-07-02 07:24] LABS: CREATININE 1.61 mg/dL (0.55-1.3)
[2025-07-02 07:45] LABS: ALK PHOS 264.0 U/L (40-150)
[2025-07-02] MEDS ORDERED: SODIUM CHLORIDE 250 ML IV PRN (13:45)
[2025-07-02] MEDS ORDERED: INSULIN ASPART SLIDING SCALE (NOVOLOG) 1 VIAL SQ ONE (17:52)
[2025-07-02] MEDS: AMINO ACIDS/PROTEIN HYDROLYS 30 ML LIQUID.PKT PO SCH (18:05)
[2025-07-02] MEDS: FUROSEMIDE 40 MG/4 ML INJECTABLE VIAL IVPUSH SCH (18:05)
[2025-07-02] MEDS: ALBUTEROL SO4 2.5/IPRATROPIUM 0.5 INH SOL 3 ML VIAL.NEB. NEB SCH (20:20)
[2025-07-02] MEDS: VALPROATE SODIUM 250 MG/5 ML UNIT DOSE CUP PEG SCH (21:53)
[2025-07-02] MEDS: APIXABAN 5 MG TABLET GT SCH (21:53)
[2025-07-02] MEDS: INSULIN GLARGINE (LANTUS) 100 UNITS/ML UNITS SQ SCH (21:54)
[2025-07-02] MEDS: INSULIN ASPART SLIDING SCALE (NOVOLOG) 1 VIAL SQ SCH (21:54)
[2025-07-02] MEDS: CLOBAZAM PEG SCH (21:54)
[2025-07-02] MEDS: NYSTATIN 100,000 UNIT/GM TOPICAL CREAM 15 GM TUBE TP SCH (21:54)
[2025-07-02] MEDS: SENNOSIDES 8.8 MG/5 ML SYRUP GT SCH (21:55)
[2025-07-03] MEDS ORDERED: LORazepam 2 MG/ML SDV VIAL ONE (05:53)
[2025-07-03 07:36] LABS: ABSOLUTE IMMATURE GRANULOCYTES 0.05 x10^3/uL (0.0-0.031); BASOPHILS # 0.01 x10^3/uL (0.01-0.08); EOSINOPHIL % 0.5 % (0.7-5.8); EOSINOPHILS # 0.02 x10^3/uL (0.04-0.36); MCHC 31.3 g/dl (32.2-35.5); MEAN CELL VOLUME 92.7 fl (79.4-94.8); MEAN PLT VOLUME 12.7 fl (9.4-12.3); MONOCYTE # 0.46 x10^3/uL (0.24-0.86); MONOCYTE % 11.0 % (4.7-12.5); RDW 20.2 % (12.3-16.6)
[2025-07-03 07:46] LABS: GLUCOSE,RANDOM 238 mg/dL (74-106); TOT PROT 7.9 g/dl (6.4-8.2)
[2025-07-03 07:47] LABS: CO2 25 mmol/L (21-32)
[2025-07-03 07:49] LABS: ALK PHOS 260 U/L (40-150)
[2025-07-03 07:52] LABS: CREATININE 2.03 mg/dL (0.55-1.3); SGOT/AST 10 U/L (5-34)
[2025-07-03 08:28] LABS: SGPT/ALT < 6 U/L (0-55)
[2025-07-03] MEDS: LORazepam 2 MG/ML SDV VIAL IVPUSH PRN (11:28)
[2025-07-03] MEDS: FOLIC ACID 1 MG TABLET (FP) PEG SCH (11:44)
[2025-07-03] MEDS: THIAMINE 100 MG TABLET NR SCH (11:44)
[2025-07-03] MEDS: ASCORBIC ACID 500 MG TABLET (FP) PEG SCH (11:44)
[2025-07-03] MEDS: POLYETHYLENE GLYCOL (HEALTHYLAX) 3350 17 GM PACKET GT SCH (11:44)
[2025-07-03] MEDS: CYANOCOBALAMIN (VITAMIN B-12) 100 MCG TABLET PEG SCH (11:46)
[2025-07-04] MEDS: methylPREDNISolone NA SUCC 40 MG/1 ML VIAL IVPUSH SCH (09:33)
[2025-07-04] MEDS ORDERED: SODIUM CHLORIDE 250 ML IV PRN (17:06)
[2025-07-05 06:59] LABS: ABSOLUTE IMMATURE GRANULOCYTES 0.04 x10^3/uL (0.0-0.031); BASOPHILS # 0.02 x10^3/uL (0.01-0.08); EOSINOPHIL % 1.7 % (0.7-5.8); EOSINOPHILS # 0.13 x10^3/uL (0.04-0.36); IMMATURE PLATELET FRACTION # 11.20 x10^3/uL; MCHC 30.9 g/dl (32.2-35.5); MEAN CELL VOLUME 93.5 fl (79.4-94.8); MEAN PLT VOLUME 12.1 fl (9.4-12.3); MONOCYTE # 1.07 x10^3/uL (0.24-0.86); MONOCYTE % 14.2 % (4.7-12.5); RDW 20.1 % (12.3-16.6)
[2025-07-05 07:13] LABS: GLUCOSE,RANDOM 129 mg/dL (74-106)
[2025-07-05 07:14] LABS: TOT PROT 7.5 g/dl (6.4-8.2)
[2025-07-05 07:15] LABS: CO2 26 mmol/L (21-32)
[2025-07-05 07:19] LABS: CREATININE 1.99 mg/dL (0.55-1.3); SGOT/AST 9 U/L (5-34)
[2025-07-05 07:27] LABS: ALK PHOS 248 U/L (40-150); SGPT/ALT < 6 U/L (0-55)
[2025-07-06] MEDS ORDERED: INSULIN GLARGINE (LANTUS) 100 UNITS/ML UNITS SQ ONE (06:03)
[2025-07-07 07:09] LABS: BASOPHILS # 0.02 x10^3/uL (0.01-0.08)
[2025-07-07 07:10] LABS: ABSOLUTE IMMATURE GRANULOCYTES 0.03 x10^3/uL (0.0-0.031); EOSINOPHIL % 2.2 % (0.7-5.8); EOSINOPHILS # 0.12 x10^3/uL (0.04-0.36); IMMATURE PLATELET FRACTION # 6.70 x10^3/uL; MCHC 30.6 g/dl (32.2-35.5); MEAN CELL VOLUME 97.1 fl (79.4-94.8); MEAN PLT VOLUME 12.0 fl (9.4-12.3); MONOCYTE # 0.65 x10^3/uL (0.24-0.86); MONOCYTE % 11.7 % (4.7-12.5); RDW 19.8 % (12.3-16.6)
[2025-07-07] MEDS: VALPROATE SODIUM 250 MG/5 ML UNIT DOSE CUP PEG SCH (14:29)
[2025-07-07] MEDS: BANATROL PLUS POWDER PACKET PO SCH (14:29)
[2025-07-07] MEDS: ALBUTEROL SO4 2.5/IPRATROPIUM 0.5 INH SOL 3 ML VIAL.NEB. NEB SCH (15:07)
[2025-07-07] MEDS ORDERED: SODIUM CHLORIDE 250 ML IV PRN (16:38)
[2025-07-07] MEDS: AMINO ACIDS/PROTEIN HYDROLYS 30 ML LIQUID.PKT PO SCH (16:49)
[2025-07-07] MEDS: INSULIN ASPART SLIDING SCALE (NOVOLOG) 1 VIAL SQ SCH (16:50)
[2025-07-07] MEDS: SENNOSIDES 8.8 MG/5 ML SYRUP GT SCH (21:38)
[2025-07-07] MEDS: CLOBAZAM PEG SCH (21:38)
[2025-07-07] MEDS: APIXABAN 5 MG TABLET GT SCH (21:39)
[2025-07-07] MEDS: INSULIN GLARGINE (LANTUS) 100 UNITS/ML UNITS SQ SCH (21:39)
[2025-07-07] MEDS: NYSTATIN 100,000 UNIT/GM TOPICAL CREAM 15 GM TUBE TP SCH (21:54)
[2025-07-08] MEDS: THIAMINE 100 MG TABLET NR SCH (10:29)
[2025-07-08] MEDS: FOLIC ACID 1 MG TABLET (FP) PEG SCH (10:29)
[2025-07-08] MEDS: ASCORBIC ACID 500 MG/5 ML UNIT DOSE CUP PEG SCH (10:30)
[2025-07-08] MEDS: CYANOCOBALAMIN (VITAMIN B-12) 100 MCG TABLET PEG SCH (10:30)
[2025-07-08] MEDS: POLYETHYLENE GLYCOL (HEALTHYLAX) 3350 17 GM PACKET GT SCH (10:30)
[2025-07-08] MEDS: SCOPOLAMINE HYDROBROMIDE 1 PATCH PATCH.TD72 TD SCH (15:54)
[2025-07-10 09:28] LABS: BASOPHILS # 0.01 x10^3/uL (0.01-0.08); MONOCYTE % 8.7 % (4.7-12.5)
[2025-07-10 09:30] LABS: ABSOLUTE IMMATURE GRANULOCYTES 0.02 x10^3/uL (0.0-0.031); EOSINOPHIL % 2.4 % (0.7-5.8); EOSINOPHILS # 0.13 x10^3/uL (0.04-0.36); IMMATURE PLATELET FRACTION # 5.20 x10^3/uL; MCHC 30.5 g/dl (32.2-35.5); MEAN CELL VOLUME 95.7 fl (79.4-94.8); MEAN PLT VOLUME 12.2 fl (9.4-12.3); MONOCYTE # 0.48 x10^3/uL (0.24-0.86); RDW 18.3 % (12.3-16.6)
[2025-07-10 10:51] LABS: GLUCOSE,RANDOM 200.0 mg/dL (74-106)
[2025-07-10 10:53] LABS: CO2 23.0 mmol/L (21-32)
[2025-07-10 10:57] LABS: CREATININE 2.25 mg/dL (0.55-1.3)
[2025-07-10] MEDS ORDERED: SODIUM CHLORIDE 250 ML IV PRN (15:28)
[2025-07-10] MEDS: EPOETIN ALFA-EPBX 4,000 UNIT/ML VIAL SQ ONE (16:59)
[2025-07-11] MEDS: ACETAMINOPHEN 650 MG/20.3 ML ORAL SOLUTION (CUPS) GT ONE (01:18)
[2025-07-11 17:33] LABS: MONOCYTE # 0.74 x10^3/uL (0.24-0.86)
[2025-07-11 17:34] LABS: ABSOLUTE IMMATURE GRANULOCYTES 0.02 x10^3/uL (0.0-0.031); BASOPHILS # 0.01 x10^3/uL (0.01-0.08); EOSINOPHIL % 0.9 % (0.7-5.8); EOSINOPHILS # 0.07 x10^3/uL (0.04-0.36); IMMATURE PLATELET FRACTION # 6.20 x10^3/uL; MCHC 31.5 g/dl (32.2-35.5); MEAN CELL VOLUME 94.6 fl (79.4-94.8); MEAN PLT VOLUME 11.5 fl (9.4-12.3); MONOCYTE % 9.9 % (4.7-12.5); RDW 17.7 % (12.3-16.6)
[2025-07-11 18:59] LABS: GLUCOSE,RANDOM 226.0 mg/dL (74-106)
[2025-07-11 19:01] LABS: CO2 24.0 mmol/L (21-32)
[2025-07-11 19:05] LABS: CREATININE 1.8 mg/dL (0.55-1.3)
[2025-07-12 08:08] LABS: MCHC 31.0 g/dl (32.2-35.5); MEAN CELL VOLUME 93.0 fl (79.4-94.8); MEAN PLT VOLUME 12.6 fl (9.4-12.3); RDW 17.1 % (12.3-16.6)
[2025-07-12] MEDS ORDERED: SODIUM CHLORIDE 250 ML IV PRN (08:44)
[2025-07-12 09:03] LABS: GLUCOSE,RANDOM 148.0 mg/dL (74-106)
[2025-07-12 09:04] LABS: CO2 26.0 mmol/L (21-32)
[2025-07-12 09:08] LABS: CREATININE 2.09 mg/dL (0.55-1.3)
[2025-07-12] MEDS: EPOETIN ALFA-EPBX 4,000 UNIT/ML VIAL IVPUSH ONE (11:52)
[2025-07-13 12:12] LABS: ABSOLUTE IMMATURE GRANULOCYTES 0.02 x10^3/uL (0.0-0.031); BASOPHILS # 0.01 x10^3/uL (0.01-0.08); EOSINOPHIL % 1.5 % (0.7-5.8); EOSINOPHILS # 0.09 x10^3/uL (0.04-0.36); MCHC 31.1 g/dl (32.2-35.5); MEAN CELL VOLUME 95.0 fl (79.4-94.8); MEAN PLT VOLUME 12.3 fl (9.4-12.3); MONOCYTE # 0.72 x10^3/uL (0.24-0.86); MONOCYTE % 11.7 % (4.7-12.5); RDW 17.3 % (12.3-16.6)
[2025-07-13 14:46] VITALS: BP 120/65; PULSE 79; RESP 18; TEMP 98.2
== END 2025-07-13 15:56 | DRG 870 ==
LOC: JER 00:27 → JERBED 02:21 → J4W 09:01 → JICU 06-20 15:08 → J2W 07-02 05:12 → J5S 07-07 11:57
PROVIDERS: ADMIT Internal Medicine; ATTEND Internal Medicine
PROC: 5A1955Z Respiratory Ventilation, Greater than 96 Consecutive Hours (ICD-10-PCS; principal; 2025-06-19)
PROC: 30233N1 Transfusion of Nonautologous Red Blood Cells into Peripheral Vein, Percutaneous Approach (ICD-10-PCS; 2025-06-20)
PROC: 0B21XFZ Change Tracheostomy Device in Trachea, External Approach (ICD-10-PCS; 2025-06-20)
PROC: 06HN33Z Insertion of Infusion Device into Left Femoral Vein, Percutaneous Approach (ICD-10-PCS; 2025-06-20)
PROC: 0BJ08ZZ Inspection of Tracheobronchial Tree, Via Natural or Artificial Opening Endoscopic (ICD-10-PCS; 2025-06-20)
PROC: 5A1D70Z Performance of Urinary Filtration, Intermittent, Less than 6 Hours Per Day (ICD-10-PCS; 2025-07-05)
DX: A41.9 Sepsis, unspecified organism (principal); I50.31 Acute diastolic (congestive) heart failure; J18.9 Pneumonia, unspecified organism; N18.6 End stage renal disease; J96.02 Acute respiratory failure with hypercapnia; R53.2 Functional quadriplegia; J96.21 Acute and chronic respiratory failure with hypoxia; Z68.43 Body mass index [BMI] 50.0-59.9, adult; J44.0 Chronic obstructive pulmonary disease with (acute) lower respiratory infection; J44.1 Chronic obstructive pulmonary disease with (acute) exacerbation; I13.2 Hypertensive heart and chronic kidney disease with heart failure and with stage 5 chronic kidney disease, or end stage renal disease; G93.1 Anoxic brain damage, not elsewhere classified; J96.11 Chronic respiratory failure with hypoxia; Z99.11 Dependence on respirator [ventilator] status; K92.2 Gastrointestinal hemorrhage, unspecified; E66.01 Morbid (severe) obesity due to excess calories; Z93.0 Tracheostomy status; L89.152 Pressure ulcer of sacral region, stage 2; L89.312 Pressure ulcer of right buttock, stage 2; L89.322 Pressure ulcer of left buttock, stage 2; D64.9 Anemia, unspecified; E11.22 Type 2 diabetes mellitus with diabetic chronic kidney disease; K21.9 Gastro-esophageal reflux disease without esophagitis; Z99.2 Dependence on renal dialysis; D69.6 Thrombocytopenia, unspecified
CPT/HCPCS: 36415; 36430; 36600; 70450-TC; 71045-TC-FY; 80048; 80053; 80061; 82272; 82803; 82962; 83605; 83735; 83880; 84100; 84439; 84443; 84484; 85025; 85027; 85610; 85730; 86140; 86704; 86705; 86803; 86850; 86900; 86901; 86922; 87040; 87070; 87205; 87340; 87389; 87517; 87637-QW; 93005; 93010; 93971-TC-LT; 94002; 94640; 99291; E0186; G0480; J3373; P9038; P9058; Q5106